=== PATIENT | female | born 1945 | race Caucasian/White ===

== ENCOUNTER 2018-02-04 10:10 | Observation (INO) | payer MEDICARE, OTHER ==
[2018-02-04] MEDS ORDERED: Aspirin TAB* 325 MG PO ONE (10:49)
[2018-02-04] MEDS ORDERED: Al Hydrox/Mg Hydrox/Simet LIQ* 30 ML UDC PO ONE (10:54)
[2018-02-04] MEDS ORDERED: Lidocaine 2% VISCOUS* 15 ML UDC PO ONE (10:55)
[2018-02-04] MEDS ORDERED: Aspirin 81 mg CHEW TAB* 81 MG TAB.CHEW ONE (11:19)
[2018-02-04 11:25] LABS: ABS Basophils 0 10^3/ul (0-0.2); ABS Eosinophils 0.1 10^3/ul (0-0.6); ABS Lymphocytes 1.1 10^3/ul (1.0-4.8); ABS Monocytes 0.8 10^3/ul (0-0.8); ABS Neutrophils 4.5 10^3/ul (1.5-7.7); ABS Nucleated RBC 0 10^3/ul; Eosinophil % 0.9 % (0-6); Hematocrit 40 % (35-47); Hemoglobin 13.3 g/dl (12.0-16.0); Lymphocyte % 17.7 % (25-47); Mean Corpuscular HGB Conc 33 g/dl (31-36); Mean Corpuscular Hemoglobin 31 pg (27-31); Mean Corpuscular Volume 94 fL (80-97); Mean Platelet Volume 8.1 um3 (7.4-10.4); Nucleated Red Blood Cells % 0; Platelet Count 277 10^3/ul (150-450); Red Blood Count 4.26 10^6/ul (4.0-5.4); Red Cell Distribution Width 13 % (10.5-15); White Blood Count 6.5 10^3/ul (3.5-10.8)
[2018-02-04] MEDS ORDERED: Aspirin 81 mg CHEW TAB* 81 MG TAB.CHEW PO ONE (11:27)
[2018-02-04 11:33] LABS: INR 0.9 (0.77-1.02)
--- NOTE | 2018-02-04 11:40 | RAD ---
Indication: Left leg pain and edema.. Duplex Doppler sonography of the deep venous system of the left lower extremity deep venous system was performed. Bilaterally the common femoral veins appear patent and compressible. Left proximal greater saphenous vein, proximal deep femoral vein, femoral vein, popliteal vein, posterior tibial veins and peroneal veins appear patent and compressible. IMPRESSION: NO EVIDENCE OF DEEP VENOUS THROMBOSIS IS IDENTIFIED.
[2018-02-04 11:45] LABS: EGFR Non-African American 53.6 (>60)
[2018-02-04] MEDS ORDERED: Iodixanol* (CONTRAST) 320 MG/ML 100 ML SDV IV ONE (11:49)
--- NOTE | 2018-02-04 12:19 | RAD ---
HISTORY: Chest pain after travel, calf pain COMPARISONS: CT dated November 29, 2017 TECHNIQUE: Multiple contiguous axial CT scans of the chest were obtained after the administration of nonionic intravenous contrast, timed to the pulmonary arterial phase of contrast enhancement.. Coronal and sagittal multiplanar reformations are also submitted for review. FINDINGS: NECK AND THYROID: The lower neck and thyroid are unremarkable. CHEST WALL: There is no lower cervical, axillary, or supraclavicular lymphadenopathy by size criteria. HEART AND PERICARDIUM: The heart is unremarkable. AORTA AND PULMONARY VASCULATURE: There is no pulmonary arterial filling defect to suggest pulmonary embolism. There is no linear filling defect within the aorta to suggest aortic dissection. MEDIASTINUM: There is no mediastinal lymphadenopathy by size criteria. JUSTA: There is no hilar lymphadenopathy by size criteria. AIRWAY AND ESOPHAGUS: The airway is unremarkable, without endobronchial filling defect. The esophagus is grossly normal. LUNG PARENCHYMA: There are stable pulmonary parenchymal nodules. PLEURA: No pleural abnormalities are noted. UPPER ABDOMEN: There is a small sliding hiatal hernia. BONES AND SOFT TISSUES: Degenerative changes are noted of the spine. OTHER: None. IMPRESSION: 1. NO PULMONARY ARTERIAL FILLING DEFECT TO SUGGEST PULMONARY EMBOLISM. 2. STABLE PULMONARY PARENCHYMAL NODULES
--- NOTE | 2018-02-04 12:36 | RAD ---
HISTORY: Chest pain COMPARISONS: CTA dated February 04, 2018 VIEWS: 1: frontal portable view of the chest at 12:17 AM FINDINGS: LINES AND TUBES: None. CARDIOMEDIASTINAL SILHOUETTE: The cardiomediastinal silhouette is normal for portable technique. PLEURA: The costophrenic angles are sharp. No pleural abnormalities are noted. LUNG PARENCHYMA: The lungs are clear. ABDOMEN: The upper abdomen is clear. There is no subphrenic gas. BONES AND SOFT TISSUES: No bone or soft tissue abnormalities are noted. IMPRESSION: NO ACTIVE CARDIOPULMONARY DISEASE.
[2018-02-04] MEDS ORDERED: NF:Lubiprostone (NF) 8 MCG CAP PO PRN (12:54)
--- NOTE | 2018-02-04 13:04 | ED ---
Rogelio Corral Natalie, scribed for Robert Núñez MD on 02/04/18 at 1132 . HPI Chest Pain - HPI Summary HPI Summary: The patient is a 73 y/o F presenting to the ED c/o sudden onset chest burning starting yesterday morning while she was at rest in the car, and continuing into today after waking up. Her right arm was also hurting, so she took Ibuprofen to some relief. She just returned from [facility] on 01/30/18. Before traveling, she slid on a pool ladder, and injured her left calf, which has become more bruised, tender to touch, and harder than before she left. The pain is rated 5/10 in severity. Pt denies difficulty breathing/SOB and chest palpitations. She has not had an episode similar to this, but she has hx of HTN , hypercholesterolemia, and rheumatoid arthritis. She takes folic acid, Omeprazole, and Xeljanz. - History of Current Complaint Chief Complaint: EDChestPainROMI Hx Obtained From: Patient Onset/Duration: Started Days Ago, Still Present Timing: Constant Initial Severity: Moderate Current Severity: Moderate Pain Intensity: 5 Pain Scale Used: 0-10 Numeric Chest Pain Location: Diffuse Chest Pain Radiates: Yes Chest Pain Radiates To:: Arm - right Character: Burning Aggravating Factor(s): Nothing Alleviating Factor(s): Nothing Associated Signs and Symptoms: Positive: Chest Pain, Calf Pain/Swelling - due to sliding off pool ladder accident, Other: - left arm pain. Negative: Shortness of Breath, Palpitations - Additional Pertinent History Primary Care Physician: [id number] - Allergy/Home Medications Allergies/Adverse Reactions: Allergies Allergy/AdvReac Type Severity Reaction Status Date / Time levofloxacin [From Levaquin] Allergy Numbness Verified 02/04/18 10:20 And Tingling Home Medications: Home Medications Lubiprostone (NF) [Amitiza (NF)] 8 mcg PO BID PRN 02/04/18 [History Confirmed ] PMH/Surg Hx/FS Hx/Imm Hx Endocrine/Hematology History: Denies: Hx Diabetes Cardiovascular History: Reports: Hx Hypercholesterolemia, Hx Hypertension Denies: Hx Angina, Hx Coronary Artery Disease, Hx Myocardial Infarction, Hx Pacemaker/ICD, Hx Valvular Heart Disease Respiratory History: Denies: Hx Asthma, Hx Chronic Obstructive Pulmonary Disease (COPD) GI History: Reports: Hx Gastroesophageal Reflux Disease Musculoskeletal History: Reports: Hx Arthritis - KNEES, Hx Rheumatoid Arthritis - DIAGNOSED 2010 Denies: Hx Osteoporosis Sensory History: Reports: Hx Cataracts - BILATERAL, Hx Contacts or Glasses Denies: Hx Hearing Aid Opthamlomology History: Reports: Hx Cataracts - BILATERAL, Hx Contacts or Glasses - Surgical History Surgery Procedure, Year, and Place: tubal ligation. tonsilectomy, left knee replacement 09/2015 Hx Anesthesia Reactions: No Infectious Disease History: No Infectious Disease History: Reports: Traveled Outside the [place] in Last 30 Days - [place] - Family History Known Family History: Positive: Hypertension - Social History Alcohol Use: Rare Alcohol Amount: 1/month Substance Use Type: Reports: None Smoking Status (MU): Never Smoked Tobacco Review of Systems Positive: Chest Pain - burning, radiating to right arm Negative: Shortness Of Breath Positive: Other - left calf Positive: Bruising - left calf All Other Systems Reviewed And Are Negative: Yes Physical Exam - Summary Physical Exam Summary: Appearance: Well-appearing, Well-nourished Skin: Warm Eyes: Normal ENT: Normal Neck: Supple, nontender Respiratory: Clear to auscultation Cardiovascular: Normal S1, S2. Mild systolic injection murmur 2/6, best heard at lower left external border. Normal distal pulses in tibial and radial bilaterally. Abdomen: Soft, nontender Musculoskeletal: Normal, Strength/ROM Intact. Tenderness in left calf with mild bruising, no pain with passive extension of calf Neurological: Normal, A&Ox3 Psychiatric: Normal General: No acute distress Triage Information Reviewed: Yes Vital Signs On Initial Exam: Initial Vitals Temp Pulse Resp BP Pulse Ox 99 F 60 18 153/76 98 02/04/18 10:20 02/04/18 10:20 02/04/18 10:20 02/04/18 10:20 02/04/18 10:20 Vital Signs Reviewed: Yes Diagnostics - Vital Signs Vital Signs Temp Pulse Resp BP Pulse Ox 02/04/18 10:20 99 F 60 18 153/76 98 - Laboratory Lab Results: Lab Results 02/04/18 02/04/18 02/04/18 Range/Units 11:14 11:14 11:14 WBC 6.5 (3.5-10.8) 10^3/ul RBC 4.26 (4.0-5.4) 10^6/ul Hgb 13.3 (12.0-16.0) g/dl Hct 40 (35-47) % MCV 94 (80-97) fL MCH 31 (27-31) pg MCHC 33 (31-36) g/dl RDW 13 (10.5-15) % Plt Count 277 (150-450) 10^3/ul MPV 8.1 (7.4-10.4) um3 Neut % (Auto) 69.3 (38-83) % Lymph % (Auto) 17.7 L (25-47) % Callahan % (Auto) 11.6 H (0-7) % Eos % (Auto) 0.9 (0-6) % Baso % (Auto) 0.5 (0-2) % Absolute Neuts (auto) 4.5 (1.5-7.7) 10^3/ul Absolute Lymphs (auto) 1.1 (1.0-4.8) 10^3/ul Absolute Monos (auto) 0.8 (0-0.8) 10^3/ul Absolute Eos (auto) 0.1 (0-0.6) 10^3/ul Absolute Basos (auto) 0 (0-0.2) 10^3/ul Absolute Nucleated RBC 0 10^3/ul Nucleated RBC % 0 INR (Anticoag Therapy) 0.90 (0.77-1.02) APTT 28.6 (26.0-36.3) seconds Sodium 143 (139-145) mmol/L Potassium 3.5 (3.5-5.0) mmol/L Chloride 109 (101-111) mmol/L Carbon Dioxide 26 (22-32) mmol/L Anion Gap 8 (2-11) mmol/L BUN 11 (6-24) mg/dL Creatinine 1.01 H (0.51-0.95) mg/dL Est GFR ( Amer) 68.9 (>60) Est GFR (Non-Af Amer) 53.6 (>60) BUN/Creatinine Ratio 10.9 (8-20) Glucose 145 H (70-100) mg/dL Lactic Acid (0.5-2.0) mmol/L Calcium 9.2 (8.6-10.3) mg/dL Magnesium 2.0 (1.9-2.7) mg/dL Total Bilirubin 0.40 (0.2-1.0) mg/dL AST 31 (13-39) U/L ALT 34 (7-52) U/L Alkaline Phosphatase 68 (34-104) U/L Troponin I 0.00 (<0.04) ng/mL Total Protein 6.9 (6.4-8.9) g/dL Albumin 4.0 (3.2-5.2) g/dL Globulin 2.9 (2-4) g/dL Albumin/Globulin Ratio 1.4 (1-3) /18/18 Range/Units 11:14 WBC (3.5-10.8) 10^3/ul RBC (4.0-5.4) 10^6/ul Hgb (12.0-16.0) g/dl Hct (35-47) % MCV (80-97) fL MCH (27-31) pg MCHC (31-36) g/dl RDW (10.5-15) % Plt Count (150-450) 10^3/ul MPV (7.4-10.4) um3 Neut % (Auto) (38-83) % Lymph % (Auto) (25-47) % Callahan % (Auto) (0-7) % Eos % (Auto) (0-6) % Baso % (Auto) (0-2) % Absolute Neuts (auto) (1.5-7.7) 10^3/ul Absolute Lymphs (auto) (1.0-4.8) 10^3/ul Absolute Monos (auto) (0-0.8) 10^3/ul Absolute Eos (auto) (0-0.6) 10^3/ul Absolute Basos (auto) (0-0.2) 10^3/ul Absolute Nucleated RBC 10^3/ul Nucleated RBC % INR (Anticoag Therapy) (0.77-1.02) APTT (26.0-36.3) seconds Sodium (139-145) mmol/L Potassium (3.5-5.0) mmol/L Chloride (101-111) mmol/L Carbon Dioxide (22-32) mmol/L Anion Gap (2-11) mmol/L BUN (6-24) mg/dL Creatinine (0.51-0.95) mg/dL Est GFR ( Amer) (>60) Est GFR (Non-Af Amer) (>60) BUN/Creatinine Ratio (8-20) Glucose (70-100) mg/dL Lactic Acid 1.9 (0.5-2.0) mmol/L Calcium (8.6-10.3) mg/dL Magnesium (1.9-2.7) mg/dL Total Bilirubin (0.2-1.0) mg/dL AST (13-39) U/L ALT (7-52) U/L Alkaline Phosphatase (34-104) U/L Troponin I (<0.04) ng/mL Total Protein (6.4-8.9) g/dL Albumin (3.2-5.2) g/dL Globulin (2-4) g/dL Albumin/Globulin Ratio (1-3) Result Diagrams: 02/04/18 11:14 02/04/18 11:14 Lab Statement: Any lab studies that have been ordered have been reviewed, and results considered in the medical decision making process. - Radiology CXR Xray Interpretation: No Acute Changes - No active cardiopulmonary disease. ED physician has reviewed this report. - CT Chest/Thorax CTA CT Interpretation: No Acute Changes - 1. No pulmonary arterial filling defect to suggest pulmonary embolism. 2. Stable pulmonary parenchymal nodules. ED physician has reviewed this report. CT Interpretation Completed By: Radiologist - Ultrasound No standard instances Ultrasound Interpretation: No Acute Changes - LLE Venous Doppler Study: No evidence of deep venous thrombosis is identified. ED physician has reviewed this report. Ultrasound Interpretation Completed By: Radiologist - EKG 10:33 Cardiac Rate: Bradycardia EKG Rhythm: Sinus Bradycardia - 54 BPM EKG Interpretation: Atrial premature complex. No acute ischemic ST changes. Re-Evaluation - Re-Evaluation First Eval Re-Evaluation Time: 12:29 Change: Improved - moderately Comment: I spoke with the patient about her imaging results and possible admittance to [facility]. Her pain has moderately improved. Chest Pain Course/Dx - Course Assessment/Plan: Pain mildly improved currently, no evidence of DVT or PE on CT and ultrasound, patient in no acute distress, I spoke to the hospitalist about observing the patient for serial troponins and continued monitoring - Diagnoses Provider Diagnoses: Chest pain - Provider Notifications Discussed Care Of Patient With: Sergio Griffin Discharge - Sign-Out/Discharge Documenting (check all that apply): Discharge/Admit/Transfer - Discharge Plan Condition: Stable Disposition: ADMITTED TO [facility] Referrals: Gerard Parker MD [Primary Care Provider] - - Billing Disposition and Condition Condition: STABLE Disposition: HOSP-[facility] The documentation as recorded by the Rogelio peraza Natalie accurately reflects the service I personally performed and the decisions made by me, Robert Núñez MD.
[2018-02-04] MEDS ORDERED: hydrALAZINE IV* 20 MG/ML VIAL IV SLOW PU PRN (13:39)
[2018-02-04] MEDS: Heparin VIAL(*) 5000 UNITS/ML VIAL (FIVE THOUSAND) SUBCUT SCH ×2 (15:07→21:15)
--- NOTE | 2018-02-04 17:34 | RAD ---
INDICATION: Abscess inferior right breast. Clinical symptoms for 2 months. COMPARISON: None TECHNIQUE: Radial and antiradial scans of the inferior right breast were performed using grayscale and color Doppler imaging. Imaging was performed the site of palpable concern in the inferior breast FINDINGS: At the 7:00 position 4 to 5 cm from the nipple is a small, elliptical, thick walled, complex cystic structure with peripheral vascularity. This is likely a small abscess. This is immediately below the skin surface. There are no additional cystic or solid entities. There are prominent ducts in the retroareolar region. IMPRESSION: SUSPECT ABSCESS INFERIOR RIGHT BREAST. INCISION AND DRAINAGE OF THIS PALPABLE FINDING IS LIKELY REQUIRED. FROM AN IMAGING STANDPOINT, SUGGEST 1-2 MONTH FOLLOW-UP POST INTERVENTION/THERAPY SO TO CONFIRM COMPLETE RESOLUTION. ASSESSMENT: ACR BI-RADS Category 4: Suspicious
[2018-02-04] MEDS ORDERED: Atorvastatin* 20 MG TAB PO SCH (18:00)
[2018-02-04] MEDS: Clindamycin 600 MG IVPREMIX(* 600 MG/50 ML SDV IV SCH (20:50)
[2018-02-04] MEDS: TOFACITINIB CITRATE 5 MG PO SCH (21:13)
[2018-02-04] MEDS: Omeprazole CAP* 20 MG PO SCH (21:14)
[2018-02-04] MEDS: Folic Acid TAB* 1 MG PO SCH (21:14)
--- NOTE | 2018-02-04 21:27 | HP ---
CC: Dr. Gerard Parker * HISTORY AND PHYSICAL: DATE OF ADMISSION: 02/04/18 PRIMARY CARE PROVIDER: Dr. Gerard Parker. ATTENDING PHYSICIAN: Dr. Sergio Griffin * (dictated by Doreen Clark NP) . CHIEF COMPLAINT: Right-sided chest burning. HISTORY OF PRESENT ILLNESS: Ms. Quintero is a 73-year-old female with past medical history significant for rheumatoid arthritis, hyperlipidemia, GERD, who presented to the emergency room with complaints of right-sided chest burning. The patient states that she has recently traveled back from [facility] and had been feeling well. She states that yesterday morning, she developed sudden onset of right chest burning while she was at rest in the car. This continued today after she woke up. She also reports pain in her right arm, took some ibuprofen with relief. She reports some arthritis in that right shoulder. During her travel to [facility], she slipped on a pool ladder injuring her left calf and has had some bruising and tenderness to the touch in her left calf. She denies any shortness of breath, palpitations. She reports some diaphoresis and trembling when her pain started. She also reports nausea. She denies any diarrhea, abdominal pain, fevers, chills. The patient has not had a similar episode like this. This is different than her chest discomfort that she had 2 years prior. She has a history of hypercholesterolemia and rheumatoid arthritis. She denies any history of hypertension. She also reports developing a "skin issue on her right breast" since in September the a mass that eventually opened up about 2 weeks ago draining pus and blood. She states that she had a similar area on her left breast in the past, that she lanced at home. Due to her symptoms, she presented to the emergency room for further evaluation. While in the emergency room, she had a chest CTA showing no signs of PE. She had a left lower extremity ultrasound showing no DVT. She had a chest x-ray with no acute findings and she had an EKG showing a sinus bradycardia, rate of 44. She was noted to be hypertensive while in the emergency room. She was feeling very anxious. Due to her history and concern for her continued chest discomfort, the Hospitalists were asked to evaluate the patient for admission. PAST MEDICAL HISTORY: 1. Rheumatoid arthritis. 2. Hyperlipidemia. 3. GERD. PAST SURGICAL HISTORY: 1. Status post tubal ligation. 2. Status post left total knee arthroplasty. HOME MEDICATIONS: Include: 1. Crestor 10 mg oral every evening. 2. Omeprazole 20 mg oral twice daily. 3. Amitiza 8 mcg oral twice daily as needed for constipation. 4. Folic acid 1 mg oral twice daily. 5. Xeljanz 5 mg oral twice daily. ALLERGIES: LEVAQUIN. FAMILY HISTORY: The patient's mother and 2 sisters had a history of coronary artery disease. Her father also had a history of coronary artery disease and AAA. The patient's maternal grandmother with a history of diabetes mellitus. Her mother had a history of stomach cancer. SOCIAL HISTORY: The patient denies tobacco or recreational drug use. She rarely drinks alcohol. Her , Ronald Quintero, will be her surrogate decision maker in the event she is unable to make decisions for herself. REVIEW OF SYSTEMS: I performed an 11-point review of systems. All the pertinent positives and negatives are mentioned in the history of present illness. The patient denies any urinary symptoms. The remaining review of systems are negative. PHYSICAL EXAMINATION GENERAL APPEARANCE: The patient is alert, pleasant and appears to be in no acute distress. VITAL SIGNS: Temperature 99.0, heart rate 58, respiratory rate 15, O2 sat 96% on room air, blood pressure 188/82. HEENT: Normocephalic, atraumatic. Pupils are equal and reactive to light. Extraocular movements are intact. RESPIRATORY: There is no accessory muscle use. The lungs are clear to auscultation bilaterally. CARDIOVASCULAR: Regular rate and rhythm. S1 and S2 are present. There are no murmurs, rubs, or gallops heard. ABDOMEN: Soft, nontender, nondistended. There are bowel sounds present x4. EXTREMITIES: There is no lower extremity edema. DP and PT pulses are 2+ and symmetric. MUSCULOSKELETAL: There is no clubbing or cyanosis noted. The patient exhibits good strength in all extremities. NEUROLOGICAL: The patient is alert and oriented x4. Cranial nerves II through XII are grossly intact. PSYCHOLOGICAL: The patient is calm and cooperative. SKIN: The patient has ecchymosis to her left calf. She has an area of purplish skin that looks as though it may be an abscess formation underneath her right breast at about 7 o'clock from the nipple. DIAGNOSTIC STUDIES/LABORATORY DATA: Sodium 143, potassium 3.5, chloride 109, CO2 26, BUN 11, creatinine 1.01, glucose 145. White blood cell count 6.5, hemoglobin 13.3, hematocrit 40, platelet count 277. Troponin 0.00. EKG shows a sinus bradycardia, rate of 54. There are no acute signs of ischemia. This EKG is similar to previous from 10/24/15. Chest x-ray from today. Radiologist's impression: No active cardiopulmonary disease. Chest thoracic CTA from today. Radiologist's impression: No pulmonary arterial filling defect to suggest pulmonary embolus. Stable pulmonary parenchymal nodules. Left lower extremity venous Doppler study from today. Radiologist's impression : No evidence for deep vein thrombus is identified. IMPRESSION: Ms. Quintero is a 73-year-old female with past medical history significant for hyperlipidemia, rheumatoid arthritis, gastroesophageal reflux disease, who presented to the emergency room with complaints of right chest pain. She will be admitted as an observation for chest pain rule out acute coronary syndrome. ASSESSMENT/PLAN: 1. Chest pain. I suspect this is likely noncardiac in nature, but we will admit her to rule out acute coronary syndrome. We will trend her troponins. If she rules out for acute coronary syndrome, she can be discharged to home and then have an outpatient stress test if determined to be needed. I will check fasting lipids in the morning. 2. Right breast pain. I suspect this is the cause of her chest pain. The patient has what appears to be an abscess on the underside of her right breast. We will check an ultrasound to eval for the possibility of a large abscess. The patient states this drained on its own about 2 weeks ago. Currently, it is draining a small amount of serous drainage. She reports that it drained pus and blood previously. I will culture the wound and ask surgery to eval to see if it requires further I+D after the ultrasound is complete. 3. Hypertension. The patient states she does not have a history of hypertension. She has been hypertensive in the emergency room. This could be secondary to an ill fitting blood pressure cuff and anxiety. I am going to order her hydralazine as needed. If she continues to be hypertensive, I am going to consider starting her on amlodipine daily. 4. Hyperlipidemia. The patient will be continued on her statin. We will check fasting lipids in the morning. 5. Gastroesophageal reflux disease. The patient will be continued on omeprazole. 6. Rheumatoid arthritis. The patient will be continued on her home Xeljanz. 7. Fluids, electrolytes and nutrition. The patient will be on a heart-healthy diet. 8. Code status. Full code. 9. DVT prophylaxis. The patient is at high risk and will have subcu heparin. 10. Disposition. Observation. TIME SPENT: Time for this admission was approximately 60 minutes, greater than half of that was spent [id number] with the patient discussing medications, past medical history, the events leading up to her arrival today, and performing a physical examination. The case has been reviewed with the attending, Dr. Griffin, who agrees with the plan of care. Reviewed by DILIA TRAN 02/05/18 1428 [id number]/[facility] #: [id number] GRAIMA
[2018-02-05] MEDS: Clindamycin 600 MG IVPREMIX(* 600 MG/50 ML SDV IV SCH ×2 (03:39→12:03)
[2018-02-05] MEDS: Heparin VIAL(*) 5000 UNITS/ML VIAL (FIVE THOUSAND) SUBCUT SCH (05:11)
[2018-02-05] MEDS: Folic Acid TAB* 1 MG PO SCH (08:26)
[2018-02-05] MEDS: Omeprazole CAP* 20 MG PO SCH (08:26)
[2018-02-05] MEDS: TOFACITINIB CITRATE 5 MG PO SCH (08:26)
[2018-02-05] MEDS ORDERED: Fluconazole 100 MG TAB* TAB PO STA (12:01)
--- NOTE | 2018-02-05 12:07 | CONS ---
CC: Nick Jin MD; Dr. Gerard Parker CONSULTATION REPORT: DATE OF CONSULT: 02/05/18 INDICATION: I was asked by the hospitalist service to evaluate Ms. Quintero for an abscess of the right breast. By history, she tells me she has had a mass there that has been waxing and waning for about 4 months now. Over the last few weeks, it has become a little more swollen, a little more discolore d, and a little more painful and it was development of right chest pain that brought her to the [facility] ency room yesterday. It did start draining spontaneously yesterday and now the pain is actually quit e improved. She had no accident, injury or trauma to this breast. She remains up-to-date on her michael mograms and has not had anything abnormal by report. A check of the hospital system reveals a normal mammogram in August of 2017. She has no first-degree relatives with breast cancer. She has not h ad any previous breast biopsies. She did have an infection of the left breast a couple of years ago when she lanced that herself and that resolved. She is otherwise usually reasonably fit. She does n ot have chronic cutaneous infections. PHYSICAL EXAM: On examination, she is a well-developed, well-nourished, overweight female. She does not appear acutely ill. She is alert and coherent. She is afebrile. Vital signs are noted. [place] of the breasts reveals that they are large, symmetric. There are no ominous skin or nipple ch anges. Careful examination of the right breast does not reveal any obvious masses. In the inferior part of the breast and roughly the midclavicular line, there is an area of slightly purplish discolor ation which is slightly fluctuant. It is about 2.5 cm across and is roughly circular. It has a dept h of less than half a centimeter. There is an opening such that when I manipulated, there is a little purulent fluid forthcoming. A culture was taken yesterday, so I did not repeat a culture at this ti me. There is no surrounding induration. There is minimal tenderness. There is no obvious adenopath y. Her body habitus does somewhat limit the sensitivity of that examination. LABORATORY STUDIES: Reveal normal white blood count with relatively normal differential. Her chemis tries are relatively normal as well. She had a culture taken of the fluid, which shows 3+ neutrophil s, 2+ gram-positive bacilli, and 1+ gram-positive cocci. IMPRESSION: A 73-year-old female with waxing and waning mass of the lower breast, which appears to b e a small abscess and is now draining spontaneously. At this point, I do not think it needs additional incision and drainage and I think she could be disc harged on oral antibiotics. I have given her my card and discussed these things with her and I recom mend that she see me in the office in the coming week and we can talk about definitive therapy. I th ink given the chronic nature of this excision of the entire area is probably the most expedient way t o solve the problem and we will discuss that further when I see her in the office. I discussed her c ase with Dr. Parsons and he will take care of discharging her and again I will be happy to see her i n the office in the next couple of days. [id number]/[facility] #: [id number]
[2018-02-05 13:14] VITALS: BP 177/71
--- NOTE | 2018-02-05 23:33 | DS ---
DISCHARGE SUMMARY: ADDENDUM: HISTORY OF PRESENT ILLNESS/HOSPITAL COURSE: She was also given a one-time dose of 150 mg fluconazole p.o. x1 due to candidal vaginitis likely induced by clindamycin therapy. As mentioned, she claims that every time she gets antibiotics, she would have vaginal itchiness and 2 or 3 days later, she would have a full grown vaginal candidiasis. She is being started on this medication x1 prior to discharge and we will defer with the patient's PCP while she is on clindamycin if she might develop vaginal candidiasis during or after her clindamycin therapy. [id number]/[facility] #: [id number] MTDD
--- NOTE | 2018-02-06 00:14 | DS ---
CC: Dr. Jin; Dr. Griffin; Dr. Núñez; Dr. Parker DISCHARGE SUMMARY: DATE OF ADMISSION: 02/04/18 DATE OF DISCHARGE: 02/05/18 DISCHARGE DIAGNOSES: 1. Right breast abscess, with spontaneous draining; no need for incision and drainage per Surgery (Dr. Jin). 2. Chest pain, likely secondary to the above, 3 troponin trends were normal and equal to 0. 3. Hyperlipidemia. 4. Gastroesophageal reflux disease. 5. History of rheumatoid arthritis. HISTORY OF PRESENT ILLNESS/HOSPITAL COURSE: The patient is 73-year-old lady with history of rheumatoid arthritis, hyperlipidemia and GERD, who presented to the emergency department last night complaining of right-sided burning chest pain. The patient stated that she recently traveled back from [facility] and had been feeling well and stated that yesterday morning she developed a sudden onset of right burning chest pain while she was at rest in her car. When she woke up, she reported that her right arm was painful and she took some ibuprofen with some relief. She further mentions that she slipped on a pool ladder injuring her left calf and has had some bruising and tenderness to touch on her left calf in [facility]. She had been referred for chest pain observation to our service by Dr. Núñez. While she was being evaluated for admission, however, she mentioned that she has skin lesion under her right breast and it was found that she actually had a right breast abscess. She was admitted for observation. Her troponins were trended and as mentioned they were all found to be negative. She was seen by Dr. Jin of Surgery, who I touched base this morning and mentioned that there is no need for I and D at this time given the wound is appropriately draining and hence we will discharge her on oral antibiotics on clindamycin, especially given the results of her Gram stain showed 2+ gram-positive bacilli and 1+ gram-positive cocci and hence also should have some coverage for MRSA in addition to anaerobic coverage. She had been advised to follow up with Dr. Jin as described above and to follow up with her primary care physician within 3 days post discharge. She mentions that she has an appointment already set up this coming Wednesday with her PCP and she had been advised that her PCP and/or her surgeon should follow up on the speciation and culture data. Furthermore, she was advised to come back and be reevaluated in the ED if her abscess somewhat worsens or if she develops any fevers or chills despite being on clindamycin. Given her blood pressure was quite uncontrolled and consistently so on observation in the 160s to 180s SBPs, we will place her on the low dose lisinopril at 10 mg p.o. daily to be titrated by her PCP. Certainly, some of her uncontrolled hypertension may be due to white coat hypertension along with the stress of being just recently admitted; however, being that it is consistent and with systolics in the 180s with a BP taken prior to her discharge , I elected to place her on lisinopril. I have advised her that her primary care physician will need to observe her and to further titrate her medications, especially when her acute issue has resolved. She has been given this new medication because despite the fact of not being in pain, her blood pressure was still found to be quite elevated and certainly current studies suggest that white coat hypertension should also be treated. PHYSICAL EXAMINATION: Shows the most recent vital signs of record with a blood pressure of 177/71, 98.3 degrees Fahrenheit, 60 beats per minute heart rate, 16 per minute respiratory rate, saturating at 95% on room air. General Appearance : The patient is awake, alert, and oriented x3, not in acute distress. HEENT: Normocephalic, atraumatic. PERRLA. Extraocular muscles intact. Negative for icterus. Moist oral mucosa. Negative for throat erythema. Neck is soft, supple with no cervical lymphadenopathy, no JVD. Heart: S1, S2 within normal limits. Regular rate and rhythm. No murmurs, rubs, or gallops. Chest: Clear to auscultation bilaterally. Good air entry. No wheezes, rales, or rhonchi. Abdomen is soft, nondistended, nontender. Normoactive bowel sounds x4. Extremities: No cyanosis, clubbing, or edema. Psychiatric: No active psychosis, depression, or suicidal ideation. Skin is warm to touch and there is a 2.5 cm roughly circular and slightly purplish discoloration around the area in the inferior part of her right breast roughly in the midclavicular line. REVIEW OF SYSTEMS: She mentions that she has vaginal itching and it is not uncommon for her to have vaginal candidiasis whenever she is on antibiotic. She also was concerned about her blood pressure. Otherwise, she denied any recent headaches, dizziness, fevers, chills, nausea, vomiting, chest pain, shortness of breath, increased coughing or sputum production, abdominal pain, diarrhea, constipation, pain and/or increased frequency on urination, myalgias or arthralgias, throat pain, or new skin lesions other than her known abscess. The rest of the 14-point review of systems was otherwise unremarkable. DISCHARGE MEDICATIONS: 1. Clindamycin 600 mg p.o. t.i.d. for 10 days. 2. Folate 1 mg p.o. b.i.d. 3. Lactobacillus acidophilus 1 tab p.o. daily for 14 days. 4. Lisinopril 10 mg p.o. daily. 5. Lubiprostone or Amitiza 8 mcg p.o. b.i.d. 6. Omeprazole 20 mg p.o. b.i.d. 7. Rosuvastatin 10 mg p.o. q.p.m. 8. Tofacitinib citrate 5 mg p.o. b.i.d. for her rheumatoid arthritis. TIME SPENT: The total time spent evaluating the patient, reviewing pertinent data, and appropriate documentation is greater than 30 minutes. [id number]/[facility] #: [id number] GARIMA
== END 2018-02-05 14:00 | disposition home or self-care (01) ==
LOC: ED 10:10 → MEDTELE 12:46
PROVIDERS: ADMIT Internal Medicine; ATTEND Student in an Organized Health Care Education/Training Program
DX: N61.1 Abscess of the breast and nipple (principal); R07.9 Chest pain, unspecified; E78.5 Hyperlipidemia, unspecified; M79.606 Pain in leg, unspecified; K21.9 Gastro-esophageal reflux disease without esophagitis; M06.9 Rheumatoid arthritis, unspecified; Z96.652 Presence of left artificial knee joint
CPT/HCPCS: 36415; 71045; 71275; 80053; 80061; 83605; 83735; 84484; 85025; 85610; 85730; 87070; 87205; 87640; 87641; 93005; 96365; 99283; A9270-GY; G0378; J0360; J1644; Q9967

== ENCOUNTER 2019-02-05 16:49 | Emergency (ER) | payer MEDICARE, OTHER ==
--- NOTE | 2019-02-05 17:12 | ED ---
Palpitations / Dysrhythmia - HPI Summary HPI Summary: This patient is a 74 year old F presenting to [facility] with a chief complaint of a bout of asymptomatic a-fib that was detected by her apple watch while taking a nap this afternoon. According to the watch her heart rate was between 130-150 BPM for 20 minutes. Denies dizziness, SOB and palpations. Denies hx of a-fib. Additionally reports upper left arm pain for the past week that she has been managing with Tylenol. - History of Current Complaint Chief Complaint: EDDysrhythmPalp Time Seen by Provider: 02/05/19 17:00 Hx Obtained From: Patient Onset/Duration: Sudden Onset Timing: Intermittent Episodes Lasting: - 20 minutes Severity Currently: None Aggravating: Nothing Alleviating: Other - spontaneous Associated Signs & Symptoms: Negative - Allergy/Home Medications Allergies/Adverse Reactions: Allergies Allergy/AdvReac Type Severity Reaction Status Date / Time levofloxacin [From Levaquin] Allergy Numbness Verified 05/12/18 10:40 And Tingling Home Medications: Home Medications Albuterol Sulfate [Albuterol Sulfate Hfa] 2 puff INH Q4HR PRN 02/05/19 [History Confirmed 02/05/19] Losartan Potassium 100 mg PO DAILY 02/05/19 [History Confirmed 02/05/19] PMH/Surg Hx/FS Hx/Imm Hx Endocrine/Hematology History: Denies: Hx Diabetes Cardiovascular History: Reports: Hx Hypercholesterolemia, Hx Hypertension Denies: Hx Angina, Hx Coronary Artery Disease, Hx Myocardial Infarction, Hx Pacemaker/ICD, Hx Valvular Heart Disease Respiratory History: Denies: Hx Asthma, Hx Chronic Obstructive Pulmonary Disease (COPD) GI History: Reports: Hx Gastroesophageal Reflux Disease History: Denies: Hx Renal Disease Musculoskeletal History: Reports: Hx Arthritis, Hx Rheumatoid Arthritis - DIAGNOSED 2010 Denies: Hx Osteoporosis Sensory History: Reports: Hx Cataracts - BILATERAL, Hx Contacts or Glasses Denies: Hx Hearing Aid Opthamlomology History: Reports: Hx Cataracts - BILATERAL, Hx Contacts or Glasses - Surgical History Surgery Procedure, Year, and Place: tubal ligation. tonsilectomy, left knee replacement 09/2015 Hx Anesthesia Reactions: No Infectious Disease History: No Infectious Disease History: Denies: Traveled Outside the [place] in Last 30 Days - Family History Known Family History: Positive: Hypertension, Other - a-fib - Social History Alcohol Use: Rare Alcohol Amount: 1/month Substance Use Type: Reports: None Smoking Status (MU): Never Smoked Tobacco Review of Systems Constitutional: Negative Negative: Palpitations Negative: Shortness Of Breath Positive: Myalgia - left arm All Other Systems Reviewed And Are Negative: Yes Physical Exam - Summary Physical Exam Summary: Appearance: The patient is well-nourished in no acute distress and in no acute pain. Skin: The skin is warm and dry and skin color reflects adequate perfusion. HEENT: The head is normocephalic and atraumatic. The pupils are equal and reactive. The conjunctivae are clear and without drainage. Nares are patent and without drainage. Mouth reveals moist mucous membranes and the throat is without erythema and exudate. The external ears are intact. The ear canals are patent and without drainage. The tympanic membranes are intact. Neck: The neck is supple with full range of motion and non-tender. There are no carotid bruits. There is no neck vein distension. Respiratory: Chest is non-tender. Lungs are clear to auscultation and breath sounds are symmetrical and equal. Cardiovascular: Heart is regular rate and rhythm. There is no murmur or rub auscultated. There is no peripheral edema and pulses are symmetrical and equal. Abdomen: The abdomen is soft and non-tender. There are normal bowel sounds heard in all four quadrants and there is no organomegaly palpated. Musculoskeletal: There is no back tenderness noted. Extremities are non-tender with full range of motion. There is good capillary refill. There is no peripheral edema or calf tenderness elicited. Neurological: Patient is alert and oriented to person, place and time. The patient has symmetrical motor strength in all four extremities. Cranial nerves are grossly intact. Deep tendon reflexes are symmetrical and equal in all four extremities. Psychiatric: The patient has an appropriate affect and does not exhibit any anxiety or depression Triage Information Reviewed: Yes Vital Signs On Initial Exam: Initial Vitals Temp Pulse Resp BP Pulse Ox 96.6 F 73 18 140/103 95 02/05/19 16:53 02/05/19 16:53 02/05/19 16:53 02/05/19 16:53 02/05/19 16:53 Vital Signs Reviewed: Yes Diagnostics - Vital Signs Vital Signs Temp Pulse Resp BP Pulse Ox 02/05/19 16:53 96.6 F 73 18 140/103 95 - Laboratory Result Diagrams: 02/05/19 17:32 02/05/19 17:32 Lab Statement: Any lab studies that have been ordered have been reviewed, and results considered in the medical decision making process. - EKG 1703 Cardiac Rate: NL - 67 BPM EKG Rhythm: Sinus Rhythm Summary of EKG Findings: Normal sinus rhythm, normal ST, no ectopy, no STEMI Course/Dx - Course Course Of Treatment: Ms. Quintero was kept on a monitor here and had no further episodes of atrial fibrillation. Her lab work including a delayed troponin was negative. I recommended follow-up for further workup with her PCP. - Diagnoses Provider Diagnoses: New onset atrial fibrillation Discharge - Sign-Out/Discharge Documenting (check all that apply): Patient Departure - discharge Patient Received Moderate/Deep Sedation with Procedure: No - Discharge Plan Condition: Stable Disposition: HOME Patient Education Materials: A-fib (Atrial Fibrillation) (ED) Referrals: Gerard Parker MD [Primary Care Provider] - 2 Days Additional Instructions: RETURN TO THE EMERGENCY DEPARTMENT FOR CHANGING OR WORSENING SYMPTOMS. - Billing Disposition and Condition Condition: STABLE Disposition: Home - Attestation Statements Document Initiated by Scribe: Yes Documenting Scribe: Lindsay Carty Provider For Whom Scribe is Documenting (Include Credential): Tarun Aguila MD Scribe Attestation: ILindsay, scribed for Tarun Aguila MD on 02/05/19 at 2014. Scribe Documentation Reviewed: Yes Provider Attestation: The documentation as recorded by the Lindsay peraza accurately reflects the service I personally performed and the decisions made by me, Tarun Aguila MD Status of Scribe Document: Viewed
[2019-02-05 17:41] LABS: ABS Eosinophils 0.1 10^3/ul (0-0.6); ABS Lymphocytes 1.6 10^3/ul (1.0-4.8); ABS Monocytes 0.7 10^3/ul (0-0.8); ABS Neutrophils 2.2 10^3/ul (1.5-7.7); Eosinophil % 1.5 %; Hematocrit 39 % (35-47); Hemoglobin 12.9 g/dL (12.0-16.0); Lymphocyte % 34.3 %; Mean Corpuscular HGB Conc 33 g/dL (31-36); Mean Corpuscular Hemoglobin 31 pg (27-31); Mean Corpuscular Volume 94 fL (80-97); Mean Platelet Volume 7.7 fL (7.4-10.4); Nucleated Red Blood Cells % 0.1; Platelet Count 302 10^3/uL (150-450); Red Blood Count 4.17 10^6 /uL (3.70-4.87); Red Cell Distribution Width 14 % (10.5-15); White Blood Count 4.7 10^3/uL (3.5-10.8)
[2019-02-05 17:48] LABS: INR 0.89 (0.82-1.09)
[2019-02-05 18:02] LABS: Albumin 4.2 g/dL (3.2-5.2); Albumin/Globulin Ratio 1.6 (1-3); BUN/Creatinine Ratio 12.8 (8-20); Calcium 9.3 mg/dL (8.6-10.3); EGFR African American 59.2 (>60); EGFR Non-African American 48.9 (>60); Globulin 2.7 g/dL (2-4); Magnesium 2.1 mg/dL (1.9-2.7); Total Bilirubin 0.3 mg/dL (0.2-1.0); Total Protein 6.9 g/dL (6.4-8.9)
[2019-02-05 18:04] LABS: Troponin I 0.01 ng/mL (<0.04)
[2019-02-05 18:56] LABS: Potassium 4.4 mmol/L (3.5-5.0)
[2019-02-05 19:04] LABS: TSH (Thyroid Stimulating Horm) 2.23 mcIU/mL (0.34-5.60)
[2019-02-05 22:41] VITALS: BP 140/78
== END 2019-02-05 21:25 | disposition home or self-care (01) ==
LOC: ED 16:49
DX: I48.91 Unspecified atrial fibrillation (principal); M79.622 Pain in left upper arm; I10 Essential (primary) hypertension; Z96.652 Presence of left artificial knee joint; Z88.1 Allergy status to other antibiotic agents
CPT/HCPCS: 36415; 80053; 83605; 83735; 84443; 84484; 85025; 85379; 85610; 93005; 99283

== ENCOUNTER 2019-02-07 08:07 | Inpatient (IN) | payer MEDICARE, OTHER ==
[2019-02-07] MEDS ORDERED: Diltiazem IV push/loading dose 5 MG/ML 5 ML vial (25 mg) IV SLOW PU ONE (08:22)
--- NOTE | 2019-02-07 08:24 | ED ---
HPI Chest Pain - HPI Summary HPI Summary: This patient is a 74 year old F presenting to [facility] accompanied by with a chief complaint of sub-sternal chest pain that is described as burning since this morning, 30 minutes ago, with associated diaphoresis. Patient was here 02/05 after her apple watch showed A-fib, she was placed on monitor and no episodes of afib were observed, and she was discharged home. No Hx of afib and she is not on blood thinners. The patient returned again today for the same reason, apple watch showed afib. The patient rates the pain 5/10 in severity and has a BP of 189/135. Patient reports feeling palpitations this morning and waking up with mid-sternal chest pain. Patient denies nausea, vomiting, and SOB. Symptoms aggravated by nothing. Symptoms alleviated by nothing. The patient has a pertinent FHx of atrial fibrillation. The patient has a Hx of Rheumatoid Arthritis. - History of Current Complaint Time Seen by Provider: 02/07/19 08:08 Hx Obtained From: Patient Onset/Duration: Started Hours Ago - this morning 02/07/19 Timing: Constant Initial Severity: Moderate Current Severity: Moderate Pain Intensity: 5 Pain Scale Used: 0-10 Numeric Chest Pain Location: Lower Sternal - sub Chest Pain Radiates: No Character: Burning Aggravating Factor(s): Nothing Alleviating Factor(s): Nothing Associated Signs and Symptoms: Positive: Chest Pain, Diaphoresis, Palpitations. Negative: Shortness of Breath, Nausea, Vomiting - Additional Pertinent History Primary Care Physician: [id number] - Allergy/Home Medications Allergies/Adverse Reactions: Allergies Allergy/AdvReac Type Severity Reaction Status Date / Time levofloxacin [From Levaquin] Allergy Numbness Verified 05/12/18 10:40 And Tingling PMH/Surg Hx/FS Hx/Imm Hx Previously Healthy: No Endocrine/Hematology History: Denies: Hx Diabetes Cardiovascular History: Reports: Hx Hypercholesterolemia, Hx Hypertension Denies: Hx Angina, Hx Coronary Artery Disease, Hx Myocardial Infarction, Hx Pacemaker/ICD, Hx Valvular Heart Disease Respiratory History: Denies: Hx Asthma, Hx Chronic Obstructive Pulmonary Disease (COPD) GI History: Reports: Hx Gastroesophageal Reflux Disease History: Denies: Hx Renal Disease Musculoskeletal History: Reports: Hx Arthritis, Hx Rheumatoid Arthritis - DIAGNOSED 2010 Denies: Hx Osteoporosis Sensory History: Reports: Hx Cataracts - BILATERAL, Hx Contacts or Glasses Denies: Hx Hearing Aid Opthamlomology History: Reports: Hx Cataracts - BILATERAL, Hx Contacts or Glasses - Surgical History Surgery Procedure, Year, and Place: tubal ligation. tonsilectomy, left knee replacement 09/2015 Hx Anesthesia Reactions: No - Family History Known Family History: Positive: Hypertension, Other - a-fib - Social History Alcohol Use: Rare Alcohol Amount: 1/month Hx Substance Use: No Substance Use Type: Reports: None Hx Tobacco Use: No Smoking Status (MU): Never Smoked Tobacco Review of Systems Positive: Skin Diaphoresis Positive: Palpitations, Chest Pain - sub-sternal Negative: Shortness Of Breath Negative: Vomiting, Nausea All Other Systems Reviewed And Are Negative: Yes Physical Exam - Summary Physical Exam Summary: VITAL SIGNS: Reviewed. GENERAL: Patient is a well-developed and nourished female who is lying comfortable in the stretcher. Patient is not in any acute respiratory distress. HEAD AND FACE: No signs of trauma. No ecchymosis, hematomas or skull depressions. No sinus tenderness. EYES: PERRLA, EOMI x 2, No injected conjunctiva, no nystagmus. EARS: Hearing grossly intact. Ear canals and tympanic membranes are within normal limits. MOUTH: Oropharynx within normal limits. NECK: Supple, trachea is midline, no adenopathy, no JVD, no carotid bruit, no c- spine tenderness, neck with full ROM. CHEST: Symmetric, no tenderness at palpation, LUNGS: Clear to auscultation bilaterally. No wheezing or crackles. CVS: Tachycardia, Irregular rate and rhythm, S1 and S2 present, no murmurs or gallops appreciated. ABDOMEN: Soft, non-tender. No signs of distention. No rebound no guarding, and no masses palpated. Bowel sounds are normal. EXTREMITIES: FROM in all major joints, no edema, no cyanosis or clubbing. NEURO: Alert and oriented x 3. No acute neurological deficits. Speech is normal and follows commands. SKIN: Dry and warm Triage Information Reviewed: Yes Vital Signs On Initial Exam: Initial Vitals Temp Pulse Resp BP Pulse Ox 98.1 F 124 20 189/135 94 02/07/19 08:10 02/07/19 08:10 02/07/19 08:10 02/07/19 08:10 02/07/19 08:10 Vital Signs Reviewed: Yes Diagnostics - Laboratory Result Diagrams: 02/09/19 06:05 02/09/19 06:05 Lab Statement: Any lab studies that have been ordered have been reviewed, and results considered in the medical decision making process. - Radiology CXR Radiology Interpretation Completed By: Radiologist Summary of Radiographic Findings: Stigmata of potential obstructive lung disease. No acute pulmonary or cardiac process evident. ED physician has reviewed this report. - EKG 0915 Cardiac Rate: Other Rate - afib with rate of 81 BPM EKG Rhythm: Atrial Fibrillation ST Segment: Normal Summary of EKG Findings: A-fib with [address] elevations 0813 Cardiac Rate: Tachycardia - 130 BPM EKG Rhythm: Atrial Fibrillation ST Segment: Normal Summary of EKG Findings: A-Fib with [address] elevations. Re-Evaluation - Re-Evaluation First Eval Re-Evaluation Time: 09:04 Change: Improved Comment: Patient reports no CP or SOB. Second Eval Re-Evaluation Time: 11:08 Change: Improved Comment: Dr. Bustamante discussed with patient who is agreable to being discharged home with a follow up appointment with Dr. Bustamante's office. Chest Pain Course/Dx - Course Assessment/Plan: This patient is a 74-year-old female who presents to the emergency department with a chief complaint of having chest pain burning like pain since this morning. She reports that her Apple Watch shows that she has atrial fibrillation. She also reports that two days ago she had this episode of fibrillation on her Apple Watch but it resolved. Patient has no history of atrial fibrillation and she is not taking any blood thinners. She has past medical history significant for hypertension, asthma, and rheumatoid arthritis. In the ED course the patient was placed on a manager cardiac. EKG was performed and shows that the patient has an atrial fibrillation with RVR which is a new finding for this patient. We obtained an IV access and the patient was given Cardizem 20 mg IV. After the patient was given these medications the blood pressure and the heart rate has improved. Blood work without any significant abnormalities except for creatinine 1.1, glucose 125, and troponin is 0.00. I discussed the case with Dr. Bustamante and he recommends that the patient to be admitted to the hospital services. I discuss my physical exam, findings and test results with Dr. Serrano from the hospitalist services and she agrees to admit patient to her services. Patient is hemodynamically stable alert and oriented x 3. - Chest Pain Differential Diagnosis/HQI/PQRI: Acute [place], ACS, Angina, CHF, Chest Wall, GI Disease, Lower Respiratory Infection - Diagnoses Provider Diagnoses: Atrial fibrillation with RVR - Provider Notifications Discussed Care Of Patient With: Rashel Bustamante Time Discussed With Above Provider: 09:27 Instructed by Provider To: Admit As Inpatient - Dr. Bustamante, vice president risk management, recomended admitting the patient. Dr. Serrano, Hospitalist, admitted the patient at 11:37. - Critical Care Time Critical Care Time: 75-104 min Discharge - Sign-Out/Discharge Documenting (check all that apply): Patient Departure - admit All imaging exams completed and their final reports reviewed: Yes Patient Received Moderate/Deep Sedation with Procedure: No - Discharge Plan Condition: Good Disposition: ADMITTED TO [facility] - Billing Disposition and Condition Condition: GOOD Disposition: Admitted to [facility] - Attestation Statements Document Initiated by Scribe: Yes Documenting Scribe: Lloyd Chan Provider For Whom Shanno is Documenting (Include Credential): Danial Burciaga MD Scribe Attestation: I, Lloyd Chan, scribed for Danial Burciaga MD on 02/09/19 at 1134. Scribe Documentation Reviewed: Yes Provider Attestation: The documentation as recorded by the scribe, Lloyd Chan accurately reflects the service I personally performed and the decisions made by , Danial Burciaga MD Status of Scribe Document: Viewed
[2019-02-07 08:43] LABS: ABS Eosinophils 0.1 10^3/ul (0-0.6); ABS Lymphocytes 1.5 10^3/ul (1.0-4.8); ABS Monocytes 0.7 10^3/ul (0-0.8); ABS Neutrophils 2.9 10^3/ul (1.5-7.7); Eosinophil % 1.5 %; Hematocrit 41 % (35-47); Hemoglobin 13.7 g/dL (12.0-16.0); Lymphocyte % 28.1 %; Mean Corpuscular HGB Conc 33 g/dL (31-36); Mean Corpuscular Hemoglobin 31 pg (27-31); Mean Corpuscular Volume 94 fL (80-97); Mean Platelet Volume 7.5 fL (7.4-10.4); Nucleated Red Blood Cells % 0.1; Platelet Count 304 10^3/uL (150-450); Red Blood Count 4.36 10^6 /uL (3.70-4.87); Red Cell Distribution Width 13 % (10.5-15); White Blood Count 5.3 10^3/uL (3.5-10.8)
[2019-02-07 09:01] LABS: Albumin 4.5 g/dL (3.2-5.2); Albumin/Globulin Ratio 1.6 (1-3); BUN/Creatinine Ratio 11.8 (8-20); Calcium 9.5 mg/dL (8.6-10.3); EGFR African American 58.6 (>60); EGFR Non-African American 48.4 (>60); Globulin 2.9 g/dL (2-4); Potassium 3.9 mmol/L (3.5-5.0); Total Bilirubin 0.5 mg/dL (0.2-1.0); Total Protein 7.4 g/dL (6.4-8.9)
[2019-02-07 09:03] LABS: INR 0.9 (0.82-1.09)
[2019-02-07 09:05] LABS: CKMB ng/mL 1.8 ng/mL (0.6-6.3)
[2019-02-07 09:32] LABS: TSH (Thyroid Stimulating Horm) 2.54 mcIU/mL (0.34-5.60)
[2019-02-07 09:47] LABS: Urine Appearance Clear; Urine Bilirubin Negative (Negative); Urine Blood Negative (Negative); Urine Color Straw; Urine Glucose Negative (Negative); Urine Ketones Negative (Negative); Urine Nitrite Negative (Negative); Urine Protein Negative (Negative); Urine Specific Gravity 1.008 (1.010-1.030); Urine Urobilinogen Negative (Negative)
[2019-02-07] MEDS ORDERED: Diltiazem XR EXTEND Releas(NF) 240 MG CAP PO ONE (10:41)
[2019-02-07] MEDS ORDERED: Diltiazem CD CAP* 120 MG PO ONE (10:41)
[2019-02-07] MEDS ORDERED: Apixaban* 5 MG TAB PO ONE (10:47)
--- NOTE | 2019-02-07 13:32 | HP ---
CC: Dr. Gerard Parker* HISTORY AND PHYSICAL: DATE OF ADMISSION: 02/07/19 PRIMARY CARE PROVIDER: Dr. Gerard Parker. HEALTHCARE PROXY: Her , Ronald. CODE STATUS: Full. CHIEF COMPLAINT: Recurrence of AFib noted on Apple watch. HISTORY OF PRESENT ILLNESS: Ms. Quintero is a 74-year-old woman with rheumatoid arthritis, hypertension, constipation and GERD, who presents to the hospital for recurrence of atrial fibrillation seen on her Apple watch at 7:30 this morning. Two days prior to this presentation, she came to the emergency room with asymptomatic atrial fibrillation. She had never experienced atrial fibrillation before, but she does have an Apple watch and she saw the heart rate increase to 130 to 150 beats per minute for about 20 minutes. She had no symptoms at that time, but she came to the emergency room where she was found to already be in normal sinus rhythm, so she was discharged to follow up with her primary care physician, which she was supposed to be today. However, last night, she reports that she experienced some epigastric burning, which is possibly a chronic problem as the patient does have a history of reflux and is on a PPI nightly. However, this time, the epigastric burning was associated with mild diaphoresis. Today, she was going to go to her primary care physician for a morning appointment; however, because the Apple watch showed a recurrence of atrial fibrillation with heart rate in the 130s, she decided to come to the emergency room instead. When this tachycardia started this morning, the patient reports that she did feel palpitations, but no chest pain. She denied associated shortness of breath, fevers, chills, nausea, vomiting, or dysuria. She denied focal neuro symptoms, weakness, or altered mental status. In the emergency room, the patient was noted to have a blood pressure of 189/ 135. The patient reported that she was very anxious at that time. The patient was given IV diltiazem 20 mg and had a normalization of her blood pressure and heart rate, although still in atrial fibrillation rhythm. Her labs are unremarkable. Dr. Bustamante was consulted on the case in the emergency room and recommended that the patient could go home if she felt comfortable, with close outpatient followup. However, the patient had already canceled her clinic appointment for later today, so she was anxious about discharge from the ER. It was agreed that she would be admitted under observation while initiating oral rate control agents and anticoagulation. PAST MEDICAL HISTORY: 1. Rheumatoid arthritis. 2. GERD. 3. Constipation. 4. Hypertension. PAST SURGICAL HISTORY: Left total knee replacement. HOME MEDICATIONS: 1. Tofacitinib 5 mg twice a day. 2. Rosuvastatin 10 mg nightly. 3. Omeprazole 20 mg twice a day. 4. Losartan 100 mg daily. 5. Linaclotide 290 mcg daily. 6. Folic acid 1 mg twice a day. 7. Albuterol 2 puffs every 4 hours as needed for shortness of breath. ALLERGIES: LEVOFLOXACIN caused tingling in her extremities. FAMILY HISTORY: Her sister has a diagnosis of atrial fibrillation and has had 5 ablations. Her father has had cardiac arrest for which he needed an ICD placed. SOCIAL HISTORY: She lives with her . She is retired from [employer]. She is a never smoker, drinker, or recreational drug user. REVIEW OF SYSTEMS: A complete 10-point review of systems was performed and pertinent positives and negatives are listed in the HPI. PHYSICAL EXAMINATION GENERAL: She is a pleasant, alert woman, who is in no acute distress. VITAL SIGNS: The patient is afebrile, heart rate in the 80s, blood pressure 150 /73, respiratory rate 16, oxygen saturation 95% on room air. HEENT: Pupils are equal, round, and reactive to light bilaterally. LUNGS: Clear to auscultation bilaterally. No increased work of breathing. HEART: Irregularly irregular. No murmurs, gallops, or rubs. ABDOMEN: Soft, nontender, nondistended. EXTREMITIES: Warm and well perfused. No lower extremity edema. DP pulses 2+. NEURO: Alert and oriented x3. Cranial nerves II through XII intact. Strength and sensation grossly intact. DIAGNOSTIC STUDIES/LAB DATA: Labs reviewed and significant for creatinine 1.1 at baseline. TSH 2.5. Troponins negative x2. UA clear. Chest x-ray with stigmata of potential obstructive lung disease. No acute cardiopulmonary process is evident. An EKG before diltiazem showed AFib, rate 130; after diltiazem, AFib, rate [address] segment or T-wave abnormalities. ASSESSMENT AND PLAN: Ms. Quintero is a 74-year-old woman with a history of rheumatoid arthritis, hypertension, gastroesophageal reflux disease, constipation, who is presenting with symptomatic atrial fibrillation. She does not seem to be having an acute coronary syndrome at this time given lack of chest pain, EKG without ischemic change, and negative troponins. She will be admitted while titrating oral rate control agents with initiation of anticoagulation. 1. Atrial fibrillation. Starting on dilt 120 mg daily - increase if needed. Continue telemetry monitoring. We will also start on apixaban 5 mg twice a day. The patient was educated on risks and benefits of anticoagulation as well as signs of bleeding. 2. Hypertension. Continue home losartan 100 mg daily. 3. Gastroesophageal reflux disease. Continue home omeprazole. 4. Rheumatoid arthritis. Continue home Xeljanz twice a day. 5. FEN: Electrolytes normal. We will start a heart-healthy diet. 6. DVT prophylaxis: Now on therapeutic anticoagulation. 7. Full code. TIME SPENT: Approximately 60 minutes was spent on admission of this patient, more than half of which was spent at bedside for interview and exam. [id number]/[facility] #: [id number] GARIMA
[2019-02-07] MEDS: Diltiazem TAB* 30 MG PO SCH ×2 (18:01→23:19)
[2019-02-07] MEDS: Atorvastatin* 20 MG TAB PO SCH (18:01)
[2019-02-07] MEDS: Pantoprazole TAB * 40 MG TAB PO SCH (20:23)
[2019-02-07] MEDS: Folic Acid TAB* 1 MG PO SCH (20:23)
[2019-02-07] MEDS: Apixaban* 5 MG TAB PO SCH (20:23)
[2019-02-07] MEDS: TOFACITINIB CITRATE 5 MG PO SCH (22:43)
[2019-02-08] MEDS ORDERED: Diltiazem CD CAP* 120 MG PO SCH (09:00)
[2019-02-08] MEDS: TOFACITINIB CITRATE 5 MG PO SCH ×3 (09:00→20:10)
[2019-02-08] MEDS ORDERED: LINACLOTIDE 145 MCG PO SCH (09:00)
[2019-02-08] MEDS: Folic Acid TAB* 1 MG PO SCH ×2 (09:09→20:10)
[2019-02-08] MEDS: Losartan TAB* 25 MG PO SCH (09:10)
[2019-02-08] MEDS: Diltiazem CD CAP* 240 MG PO SCH (09:10)
[2019-02-08] MEDS: Apixaban* 5 MG TAB PO SCH ×2 (09:10→20:10)
[2019-02-08] MEDS: Pantoprazole TAB * 40 MG TAB PO SCH ×2 (09:10→20:10)
--- NOTE | 2019-02-08 12:02 | PN ---
Subjective Date of Service: 02/08/19 Interval History: patient reports she feels much better today. She does reports she awakened in the night again with symptoms of epigastric burning more than what she normally experiences with her reflux symptoms with accompanied diaphoresis, and a sense of feeling "terrible". She denies CP/SOB. No recent illnesses. Pt denies sleep apnea Objective Active Medications: Apixaban (Eliquis*) 5 mg PO BID [facility] Last Admin: 02/08/19 09:10 Dose: 5 mg Atorvastatin Calcium (Lipitor*) 20 mg PO QPM [facility]; Protocol Last Admin: 02/07/19 18:01 Dose: 20 mg Diltiazem HCl (Cardizem Cd Cap*) 240 mg PO DAILY [facility] Last Admin: 02/08/19 09:10 Dose: 240 mg Folic Acid (Folvite Tab*) 1 mg PO BID [facility] Last Admin: 02/08/19 09:09 Dose: 1 mg Linaclotide (Linzess (Nf)) 290 mcg PO QAM [facility] Losartan Potassium (Cozaar Tab*) 100 mg PO DAILY [facility] Last Admin: 02/08/19 09:10 Dose: 100 mg Pto: Tofacitinib Citrate [Xeljanz] 5 Mg 5 mg PO BID [facility] Last Admin: 02/08/19 09:09 Dose: 5 mg Pantoprazole Sodium (Protonix Tab*) 40 mg PO BID [facility] Last Admin: 02/08/19 09:10 Dose: 40 mg Vital Signs - 8 hr 02/08/19 02/08/19 08:00 08:05 Temperature 97.2 F Pulse Rate 97 Respiratory 20 20 Rate Blood Pressure 129/88 (mmHg) O2 Sat by Pulse 92 Oximetry Oxygen Devices in Use Now: None Appearance: obese 74 yo female sitting up on the bed in NAD, A+O x3 Eyes: No Scleral Icterus, PERRLA Ears/Nose/Mouth/Throat: Mucous Membranes Moist Respiratory: Symmetrical Chest Expansion and Respiratory Effort, Clear to Auscultation Cardiovascular: NL Sounds; No Murmurs; No JVD, No Edema, - - irregularly irregular Abdominal: NL Sounds; No Tenderness; No Distention Extremities: No Edema, No Clubbing, Cyanosis Skin: No Rash or Ulcers Neurological: Alert and Oriented x 3, NL Sensation, NL Gait, NL Muscle Strength and Tone Lines/Tubes/Other Access: Clean, Dry and Intact Peripheral IV Nutrition: Taking PO's Result Diagrams: 02/07/19 08:30 02/07/19 08:30 Assess/Plan/Problems-Billing Assessment: 74 yo female with a PMH of RA, HTN, constipation, GERD who presented to the ER after her apple watch reported she was in afib. She presented to the ER a few days prior with the same c/o and was found to be in sinus rhythm. She then experienced some epigastric burning, mild diaphoresis, found to be in afib on her watch again. She returned to the ER and was found to be in afib and be hypertensive and was admitted to the hospitalist service - Patient Problems (1) Atrial fibrillation with RVR Comment: - new onset afib - converted in the ER with Cardizem not back in afib, now rate controlled in afib - had another episode in the night of epigastric buring, diaphoresis -plan to keep patient overnight and obtain overnight pulse oximetry - patient is now asymptomatic - Echo pending - Continue Eliquis - Troponins negative - cardiology to consult (2) GERD (gastroesophageal reflux disease) Comment: - continue PPI - possible reflux symptoms at night? (3) Obesity (BMI 30-39.9) Comment: - add on HgA1C (4) RA (rheumatoid arthritis) Comment: - controlled; continue home Xeljanz BID (5) Hypertension Comment: - controlled. continue home dose losartan, continue cardizem (new) (6) DVT prophylaxis Comment: eliquis Status and Disposition: OBV. Most likely home tomorrow.
[2019-02-08] MEDS: PTO: Linaclotide (NF) 290 MCG CAP PO SCH (13:09)
--- NOTE | 2019-02-08 16:32 | ECHO ---
*[facility]* [place] [address] Fax #: [phone] Transthoracic Echocardiogram Patient: Leon, Height: 65 in / Sheryl Mckeon 165.1 cm : 1945 Weight: 235.5 lb / Study Date: 02/08/2019 107 kg Age: 74 BP: 132 / 78 Gender: F BMI/BSA: 39.3 kg/m^2 HR: 93 bpm / 2.12 m^2 *Chip Frier: Liberty Whalen [facility] *Referring Physician: * Kim Rodriguez *Reading Physician: Aleta Bello MD Indications: Atrial Fibrillation. History: Risk factors: Hypertension. Conclusions Summary: 1. Left ventricle: The cavity size is normal. Wall thickness is moderately increased. The estimated ejection fraction is 60-65%. 2. Right ventricle: Systolic function is normal. 3. Aortic valve: The valve is trileaflet. The leaflets are mildly thickened. Left corornary cusp is moderately thickened. There is mild regurgitation. 4. No prior echocardiogram to compare. Study data: Transthoracic echocardiogram. Procedure: Transthoracic echocardiography was performed. Image quality was fair. Complete 2D, spectral Doppler, and color flow Doppler. Location: Bedside. Patient status: Inpatient. Patient room number: 453. Rhythm: Atrial fibrillation. Findings Left ventricle: The cavity size is normal. Wall thickness is moderately increased. The estimated ejection fraction is 60-65%. Wall motion is normal; there are no regional wall motion abnormalities. Left ventricular diastolic function parameters are indeterminate. Right ventricle: The cavity size is normal. Wall thickness is mildly increased. Systolic function is normal. Left atrium: The atrium is at the upper limits of normal in size. Right atrium: Not well visualized. Mitral valve: The annulus is mildly calcified. The leaflets are mildly thickened. There is no evidence of stenosis. There is no significant regurgitation. Aortic valve: The valve is trileaflet. The leaflets are mildly thickened. Left corornary cusp is moderately thickened. There is no evidence of stenosis. There is mild regurgitation. Tricuspid valve: The leaflets are normal thickness. There is no evidence of stenosis. There is no significant regurgitation. Pulmonic valve: Not well visualized. There is no significant regurgitation. Aorta: Aortic arch: The aortic arch is appears normal. The aortic root is not dilated. Pericardium: There is no significant pericardial effusion. Pulmonary arteries: Not well visualized. Systemic veins: Inferior vena cava: The vessel is dilated. The respirophasic diameter changes are in the normal range (>= 50%). Measurements Left ventricle Value Ref Aortic valve continued Value Ref TRISTIAN, LAX 3.9 cm 3.8 - 5.2 Mean grad, S 3.0 mm Hg ---- ESD, LAX (L) 2.0 cm 2.2 - 3.5 Peak grad, S 7.0 mm Hg ---- FS, LAX (H) 50 % 27 - 45 ROB, VTI 3.14 cm^2 ---- PW, ED, LAX (H) 1.3 cm 0.6 - 0.9 ROB, Vmax 3.14 cm^2 ---- EF (H) 82 % 54 - 74 E', med martha, TDI 9.6 cm/sec >=7.0 Mitral valve Value Re f E/e', med martha, 11 Peak E 1.06 m/sec ---- TDI Peak A 0.03 m/sec ---- Decel time 169 ms ---- LVOT Value Ref PHT 62 ms ---- Diam, S 2.00 cm Mean grad, D 2.0 mm Hg ---- Area 3.1 cm^2 Peak grad, D 5.0 mm Hg ---- Peak sonido, S 1.33 m/sec Peak E/A ratio 34.2 ---- Peak grad, S 7 mm Hg MVA, PHT 3.3 cm^2 ---- Mean grad, S 4 mm Hg Pulmonic valve Value Ref Ventricular septum Value Ref Peak v, S 0.83 m/sec ---- IVS, ED (H) 1.4 cm 0.6 - 0.9 Peak grad, S 3.0 mm Hg ---- Right ventricle Value Ref Aortic root Value Ref TRISTIAN, LAX 2.9 cm Root diam 2.8 cm <4.2 Left atrium Value Ref Ascending aorta Value Ref AP dim, ES (H) 4.20 cm 2.70 - AAo AP diam, S 3.4 cm ---- 3.80 ML dim, A4C 4.0 cm Aortic arch Value Ref SI dim, A4C 5.2 cm Arch diam 2.9 cm ---- Vol/bsa, ES, A/L 24 ml/m^2 16 - 34 Decending aorta Value Ref Right atrium Value Ref Kirsty peak sonido 0.64 m/sec ---- Estimated RAP 3 mm Hg Inferior vena cava Value Ref Aortic valve Value Ref Diam 2.4 cm ---- Peak v, S 1.33 m/sec VTI, S 21.7 cm Legend: (L) and (H) rashad values outside specified reference range. Prepared and electronically signed by Aleta De La Torre MD 02/08/2019 16:31
[2019-02-08] MEDS: Atorvastatin* 20 MG TAB PO SCH (17:40)
--- NOTE | 2019-02-09 01:34 | CONS ---
CC: Dr. Gerard Parker; Hospitalist Service CARDIOLOGY CONSULTATION: DATE OF CONSULT: 02/08/19 REASON FOR CONSULTATION: Paroxysmal atrial fibrillation. CHIEF COMPLAINT: Intermittent tachycardia. HISTORY OF PRESENT ILLNESS: Mrs. Quintero is a 74-year-old woman with rheumatoid arthritis and no prior cardiac history. The patient has an Apple watch and had presented to the emergency room twice due to elevated heart ra dominique on her Apple watch. Rates were 130 to 150 beats per minute for up to 20 minutes at a time. Her initial presentation in the emergency room, she was in sinus rhythm; however, yesterday, she presente d to the emergency room instead of her primary care physician because of recurrent high rates on her Apple watch, awareness of palpitation, and she had had some epigastric discomfort and diaphoresis the night before. The patient denies alcohol use, excessive caffeine or [id number] medication. She denies snoring or symptoms of sleep apnea. She wakes up with good energy but then did tell me she takes a nap in t he daytime. PAST MEDICAL HISTORY: The patient has a past medical history of rheumatoid arthritis followed by Dr. Parker, hypertension, constipation, and reflux. PAST SURGICAL HISTORY: Knee replacement in 2017. MEDICATIONS: Outpatient medications include: 1. Tofacitinib 5 mg b.i.d. 2. Crestor 10 mg at night. 3. Omeprazole 20 mg b.i.d. 4. Losartan 100 mg a day. 5. Linaclotide 290 mcg a week. 6. Folic acid 1 mg b.i.d. 7. Albuterol inhaler. Inpatient medications include: 1. Eliquis 5 mg b.i.d. 2. Lipitor 20 mg a day. 3. Cardizem 240 mg a day. 4. Folvite 1 mg b.i.d. 5. Linzess 290 mcg a day. 6. Cozaar 100 mg a day. 7. Xeljanz 5 mg b.i.d. 8. Protonix 40 mg b.i.d. ALLERGIES: LEVOFLOXACIN. FAMILY HISTORY: Significant that she has multiple siblings with atrial fibrillation and a sibling wi th 5 ablations. She has a father who had a history of cardiac arrest and ICD and I believe AFib. 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 She lives with her . Never smoked. No history of recreationa l drug use. No alcohol abuse. REVIEW OF SYSTEMS: A 14-point review of systems was performed, negative for recent fevers, chills, s weats. No recent travel. No coughing. No change in her usual bowel habits. Negative for exertiona l chest discomfort. She admits that after her knee surgery, she has been very inactive getting less activity than before. She denies orthopnea, PND, swelling or weight gain. See history of present il lness for notations of palpitation, epigastric burning, and diaphoresis. The patient did state that Dr. Parker doubled one of her blood pressure medicines relatively recently the last time she had seen him. PHYSICAL EXAM: On exam, the patient is a short, centripetally obese older woman, seated with her jonathan ghter, in no acute distress. She is 5 feet 2 inches, weighs 236 pounds with a BMI of 39, blood press ure 122/70, pulse was 80 to 100, respiratory rate of 16, oxygen saturation on room air 95. HEENT: P upils are equal and round. Mucous membranes are moist. Neck: Without increased JVP. No appreciable thyromegaly. Breath sounds are clear with good effort. No wheezes, rales or rhonchi. Coronary: S 1, S2, irregularly irregular. 2/6 early to mid peaking systolic murmur heard in the right upper ster nal border with radiation to the left sternal border. No rubs. No diastolic murmurs. Abdomen: Act jesús bowel sounds. No appreciable hepatomegaly. The lower extremities are free of edema, warm with pa lpable posterior tibial pulses. DIAGNOSTIC STUDIES/LAB DATA: The patient's transthoracic echo from 02/08/19, shows moderate left naif tricular hypertrophy with an ejection fraction of 60% to 65%, mild right ventricular hypertrophy with normal RV systolic function, aortic valve sclerosis with mild aortic insufficiency. ECGs reviewed from 02/07/18 at 0800. She was in AFib with a ventricular rate of 130 beats a minute, QRS axis 0, normal intraventricular conduction times, nonspecific ST changes. From 02/08/18 at 1159, the patient is in AFib with a ventricular rate of 90 beats a minute. Compared with her EKG of 02/04, the AFib is new and ventricular tachycardia replaces mild sinus bradycardia at 54 beats a minute . Labs: White count 5.3, hematocrit 41, platelets 304. INR 0.9. Sodium 140, potassium 3.9, chloride 106, bicarb 24, BUN 13, creatinine 1.1, glucose 125, hemoglobin A1c 6.4. ALT 36, AST 27. Troponin 0 .00, #2 is 0.01. BNP of 40. Urinalysis unremarkable. Chest x-ray from 02/07/19, showed stigmata of potential obstructive disease, mildly tortuous descendi ng thoracic aorta, stable. ASSESSMENT AND PLAN: On summary, Sheryl Quintero, is a 74-year-old woman with an Apple watch, who has no alissa intermittent tachycardia and found to have paroxysmal atrial fibrillation, initially symptomatic, but now mildly symptomatic. She has some epigastric burning and diaphoresis have occurred and her e chocardiogram shows moderate left ventricular hypertrophy, and mild aortic insufficiency. The atrial fibrillation could be related to the patient's age, hypertension, evidence suboptimally tr eated based on history of recent increase in meds and left ventricular hypertrophy seen on echo. She might have sleep apnea, although history equivocal and the patient is centripetally overweight with a high body mass index, which is independently associated with sleep apnea. For now, I agree with rate control and anticoagulation, the calcium channel and beta blockers could a lso contribute to improved rhythm control that have not, but today the patient had paroxysmal AFib on these medications in the hospital. Before deciding on an antiarrhythmic with her atherosclerotic risk of dyslipidemia, hypertension, fat her's history, overweight and inactivity, I am electing to get a stress test first and then decide on antiarrhythmic management. Options would include sotalol, however, she was mildly bradycardic without rate lowering agents. Tik osyn and amiodarone would be other options, but I would hate to start amiodarone unless they are abso lutely necessary. I would not initiate procainamide without first evaluating her with the stress dominique t. For potential atherosclerotic risk, I would aggressively manage her blood pressure, lipids, get LDL c holesterol between 100 and 130, and try to encourage the patient to optimize diet, weight, and exerci se pattern. Further recommendations will be made, pending the results of her stress test and her clinical course on her current medical regimen. I would continue her on anticoagulation indefinitely as she has asymptomatic or nearly asymptomatic A Fib even with the Apple watch. [id number]/[facility] #: [id number]
[2019-02-09 06:28] LABS: ABS Eosinophils 0.1 10^3/ul (0-0.6); ABS Lymphocytes 1.4 10^3/ul (1.0-4.8); ABS Monocytes 0.8 10^3/ul (0-0.8); ABS Neutrophils 3.1 10^3/ul (1.5-7.7); Eosinophil % 1.3 %; Hematocrit 41 % (35-47); Hemoglobin 13.9 g/dL (12.0-16.0); Lymphocyte % 26.8 %; Mean Corpuscular HGB Conc 34 g/dL (31-36); Mean Corpuscular Hemoglobin 32 pg (27-31); Mean Corpuscular Volume 94 fL (80-97); Mean Platelet Volume 7.6 fL (7.4-10.4); Nucleated Red Blood Cells % 0.1; Platelet Count 307 10^3/uL (150-450); Red Blood Count 4.39 10^6 /uL (3.70-4.87); Red Cell Distribution Width 13 % (10.5-15); White Blood Count 5.4 10^3/uL (3.5-10.8)
[2019-02-09 06:46] LABS: BUN/Creatinine Ratio 12.6 (8-20); Calcium 9.6 mg/dL (8.6-10.3); EGFR African American 63.2 (>60); EGFR Non-African American 52.2 (>60); Potassium 4.2 mmol/L (3.5-5.0)
[2019-02-09] MEDS: Losartan TAB* 25 MG PO SCH (10:55)
[2019-02-09] MEDS: PTO: Linaclotide (NF) 290 MCG CAP PO SCH (10:56)
[2019-02-09] MEDS: Apixaban* 5 MG TAB PO SCH ×2 (10:56→21:08)
[2019-02-09] MEDS: Folic Acid TAB* 1 MG PO SCH ×2 (10:56→21:08)
[2019-02-09] MEDS: Diltiazem CD CAP* 240 MG PO SCH (10:56)
[2019-02-09] MEDS: Pantoprazole TAB * 40 MG TAB PO SCH ×2 (10:56→21:09)
[2019-02-09] MEDS: TOFACITINIB CITRATE 5 MG PO SCH ×2 (10:56→21:09)
[2019-02-09] MEDS: Atorvastatin* 20 MG TAB PO SCH (18:13)
--- NOTE | 2019-02-09 18:15 | PN ---
Subjective Date of Service: 02/09/19 Interval History: Patient is feeling well today. Patient has been having WEBBER but denies palpitations. Patient denies CP, SOB, N/V, abdominal pain, dysuria, or other pain. Patient had no symptoms except for slight SOB during stress test. Family History: Unchanged from Admission Social History: Unchanged from Admission Past Medical History: Unchanged from Admission Objective Active Medications: Apixaban (Eliquis*) 5 mg PO BID [facility] Last Admin: 02/09/19 10:56 Dose: 5 mg Atorvastatin Calcium (Lipitor*) 20 mg PO QPM [facility]; Protocol Last Admin: 02/08/19 17:40 Dose: 20 mg Diltiazem HCl (Cardizem Cd Cap*) 180 mg PO DAILY [facility] Dronedarone (Multaq Tab*) 400 mg PO BID [facility] Folic Acid (Folvite Tab*) 1 mg PO BID [facility] Last Admin: 02/09/19 10:56 Dose: 1 mg Linaclotide (Linzess (Nf)) 290 mcg PO QAM [facility] Last Admin: 02/09/19 10:56 Dose: 290 mcg Losartan Potassium (Cozaar Tab*) 100 mg PO DAILY [facility] Last Admin: 02/09/19 10:55 Dose: 100 mg Pto: Tofacitinib Citrate [Xeljanz] 5 Mg 5 mg PO BID [facility] Last Admin: 02/09/19 10:56 Dose: 5 mg Pantoprazole Sodium (Protonix Tab*) 40 mg PO BID [facility] Last Admin: 02/09/19 10:56 Dose: 40 mg Vital Signs - 8 hr 02/09/19 02/09/19 11:40 15:08 Temperature 97.6 F Pulse Rate 96 Respiratory 21 Rate Blood Pressure 112/67 98/70 (mmHg) O2 Sat by Pulse 98 Oximetry Oxygen Devices in Use Now: None Appearance: Patient is a 74yo female who appears stated age and is sitting in the chair in [facility]. Eyes: No Scleral Icterus, PERRLA Ears/Nose/Mouth/Throat: NL Teeth, Lips, Gums, Clear Oropharnyx, Mucous Membranes Moist Neck: NL Appearance and Movements; NL JVP, Trachea Midline Respiratory: Symmetrical Chest Expansion and Respiratory Effort, Clear to Auscultation Cardiovascular: NL Sounds; No Murmurs; No JVD, No Edema, - - Irregularly Irregular rhythm, slightly tachycardic. Abdominal: NL Sounds; No Tenderness; No Distention, No Hepatosplenomegaly Lymphatic: No Cervical Adenopathy Extremities: No Edema, No Clubbing, Cyanosis Skin: No Rash or Ulcers, No Nodules or Sclerosis Neurological: Alert and Oriented x 3, NL Sensation, NL Muscle Strength and Tone , - - CN II-XII intact. Result Diagrams: 02/09/19 06:05 02/09/19 06:05 Assess/Plan/Problems-Billing Assessment: 74 yo female with a PMH of RA, HTN, constipation, GERD who presented to the ER after her apple watch reported she was in afib. She presented to the ER a few days prior with the same c/o and was found to be in sinus rhythm. She then experienced some epigastric burning, mild diaphoresis, found to be in afib on her watch again. She returned to the ER and was found to be in afib and be hypertensive and was admitted to the hospitalist service - Patient Problems (1) Atrial fibrillation with RVR Current Visit: Yes Status: Acute Code(s): I48.91 - UNSPECIFIED ATRIAL FIBRILLATION SNOMED Code(s): 584301475202315 Comment: - New onset afib - converted in the ER with Cardizem now back in afib, - Now rate controlled in afib - Echo shows normal EF, LVH - Continue Eliquis - Troponins negative - Cardiology consult appreciated, stress test low risk - Overnight pulse oximetry markedly abnormal with prolonged periods of desaturation, likely contributing to afib, repeat tonight with oxygen. - Patient prefers rate control, start Multaq. (2) Hypertension Current Visit: Yes Status: Acute Code(s): I10 - ESSENTIAL (PRIMARY) HYPERTENSION SNOMED Code(s): 78356901 Comment: - Controlled. continue home dose losartan - One episode of hypotension, decrease cardizem. (3) RA (rheumatoid arthritis) Current Visit: Yes Status: Acute Code(s): M06.9 - RHEUMATOID ARTHRITIS, UNSPECIFIED SNOMED Code(s): 11804253 Comment: - Controlled; continue home Xeljanz BID (4) Full code status Current Visit: Yes Status: Acute Code(s): Z78.9 - OTHER SPECIFIED HEALTH STATUS SNOMED Code(s): 773498929 (5) DVT prophylaxis Current Visit: Yes Status: Acute Code(s): Z29.9 - ENCOUNTER FOR PROPHYLACTIC MEASURES, UNSPECIFIED SNOMED Code(s): 609650013 Comment: - Eliquis Status and Disposition: Inpatient, Home tomorrow in AM after Repeat EKG assuming patient tolerates Multaq.
[2019-02-09] MEDS: Dronedarone TAB* 400 MG PO SCH (21:09)
--- NOTE | 2019-02-10 03:32 | PN ---
Progress Note - Progress Note Date of Service: 02/10/19 Note: Paged for frequent 2 second pauses during the night
[2019-02-10 06:09] LABS: ABS Eosinophils 0.1 10^3/ul (0-0.6); ABS Lymphocytes 1.6 10^3/ul (1.0-4.8); ABS Monocytes 0.7 10^3/ul (0-0.8); ABS Neutrophils 3.2 10^3/ul (1.5-7.7); Eosinophil % 1.1 %; Hematocrit 39 % (35-47); Hemoglobin 13.1 g/dL (12.0-16.0); Mean Corpuscular HGB Conc 33 g/dL (31-36); Mean Corpuscular Hemoglobin 31 pg (27-31); Mean Corpuscular Volume 94 fL (80-97); Mean Platelet Volume 7.4 fL (7.4-10.4); Nucleated Red Blood Cells % 0.1; Platelet Count 305 10^3/uL (150-450); Red Blood Count 4.19 10^6 /uL (3.70-4.87); Red Cell Distribution Width 13 % (10.5-15); White Blood Count 5.6 10^3/uL (3.5-10.8)
[2019-02-10 06:29] LABS: BUN/Creatinine Ratio 14.2 (8-20); Calcium 9.5 mg/dL (8.6-10.3); EGFR African American 56.8 (>60); EGFR Non-African American 46.9 (>60); Potassium 4.1 mmol/L (3.5-5.0)
[2019-02-10 07:55] VITALS: BP 118/74
[2019-02-10] MEDS: PTO: Linaclotide (NF) 290 MCG CAP PO SCH (08:21)
[2019-02-10] MEDS: Apixaban* 5 MG TAB PO SCH (08:21)
[2019-02-10] MEDS: Pantoprazole TAB * 40 MG TAB PO SCH (08:21)
[2019-02-10] MEDS: Dronedarone TAB* 400 MG PO SCH (08:22)
[2019-02-10] MEDS: TOFACITINIB CITRATE 5 MG PO SCH (08:22)
[2019-02-10] MEDS: Losartan TAB* 25 MG PO SCH (08:22)
[2019-02-10] MEDS: Folic Acid TAB* 1 MG PO SCH (08:22)
[2019-02-10] MEDS ORDERED: Diltiazem CD CAP* 180 MG PO SCH (09:00)
[2019-02-10] MEDS ORDERED: Diltiazem CD CAP* 180 MG PO ONE (14:31)
--- NOTE | 2019-02-11 00:37 | DS ---
CC: Dr. Gerard Parker; Dr. Rodger Sylvester* DISCHARGE SUMMARY: DATE OF ADMISSION: 02/07/19 DATE OF DISCHARGE: 02/10/19 PRIMARY CARE PROVIDER: Dr. Gerard Parker. MY ATTENDING WHILE IN THE HOSPITAL: Dr. Rodger Sylvester* (dictated by AMANDO Griffith). PRIMARY DISCHARGE DIAGNOSIS: Atrial fibrillation. SECONDARY DISCHARGE DIAGNOSES: 1. Rheumatoid arthritis. 2. Gastroesophageal reflux disease. 3. Hypertension. STUDIES DONE WHILE IN THE HOSPITAL: EKG from 02/07/19, read as atrial fibrillation, rate of 130, QTc of 472, normal axis. No ST-segment elevation or depression. Poor quality study. Repeat EKG from 02/07/19 shows persistent atrial fibrillation, rate 81, QTc of 450. EKG from 02/08/19 shows atrial fibrillation, no significant changes from previous exam, rate of 91, QTc of 418. Repeat EKG from 02/10/19, shows atrial fibrillation, rate of 84, QTc of 453, no significant changes. Chest x-ray from 02/07/19 read as potential obstructive lung disease, no acute pulmonary or cardiac process evident. Transthoracic echocardiogram from 02/08/19 shows left ventricular chamber size is normal, wall thickness mildly increased, estimated ejection fraction 65%, right ventricular systolic function is normal. Aortic valve shows mild aortic sclerosis with mild regurgitation. No significant findings. Nuclear medicine scan, 02/09/19, read as low risk with stress EF of 64%. Normal ejection fraction. No risk for perfusion defects. Overnight pulse oximetry from shows 44% of the patient's time spent less with oxygen saturation less than 90. Repeat pulse oximetry with 2 L shows 1 minute 40 seconds of time spent with pulse oximetry less than 90. MEDICATIONS AT DISCHARGE: 1. Crestor 10 mg p.o. daily. 2. Omeprazole 20 mg p.o. b.i.d. 3. Xeljanz 5 mg b.i.d. 4. Folic acid 1 mg p.o. b.i.d. 5. Linzess 290 mcg p.o. daily. 6. Albuterol sulfate 2 puffs inhalation q.4 hours as needed. 7. Losartan 100 mg p.o. daily. 8. Eliquis 5 mg p.o. b.i.d. 9. Diltiazem 180 mg p.o. daily. 10. Dronedarone 400 mg p.o. b.i.d. New medications at discharge: 1. Eliquis. 2. Diltiazem. 3. Dronedarone. Medications discontinued at discharge: None. HOSPITAL COURSE: This is a brief summary of the patient's presentation. For more details, please see the history and physical from Dr. Geri Serrano on . In brief, the patient is a 74-year-old female with a past medical history significant for above, who returned to the emergency department with noted tachycardia and irregular heart rhythm on her Apple watch. The patient presented 2 days prior to her admission to the hospital (emergency department) due to again noting tachycardia for approximately 20 minutes on her Apple watch. The patient was asymptomatic both times. In the emergency department, she was found to have return to normal sinus rhythm, was not anticoagulated at this time. At that time, the patient had a followup appointment with her primary care provider, but was unable to make it due to her returning to the emergency department due to concern for recurrent atrial fibrillation. The patient in the emergency department was started on Eliquis, diltiazem, and was admitted to the hospital. The patient was seen in consultation by Dr. Aleta De La Torre and thorough discussion with the patient, it was opted for the patient to have a primary rhythm control method of treating atrial fibrillation. The patient had normal electrolytes, which were unremarkable while in the hospital. The patient has borderline chronic kidney disease mostly in line with her baseline. The patient had negative troponins. The patient had overnight pulse oximetry as above, which was due to concern that sleep apnea may be contributing to her atrial fibrillation with almost complete resolution of the patient's hypoxia with 2 L of oxygen. The patient had a stress test prior to initiation of antiarrhythmic therapy, which shows low risk. The patient was started on dronedarone, observed overnight. The patient tolerated the medication well. The patient stayed in atrial fibrillation with controlled rate and remained asymptomatic. QTC is not probably prolonged. The patient was stable enough for discharge on 02/10/19. PHYSICAL EXAMINATION ON THE DAY OF DISCHARGE: General: The patient is a 74- year- old female who appears stated age and sitting comfortably in the bed, in no acute distress. Vital Signs: At the time of discharge, temperature 98.1, pulse rate 76, respiratory rate 16, oxygen saturation 98% on room air, blood pressure 118/74. HEENT: Head: Normocephalic, atraumatic. Sclerae anicteric. No conjunctival injection. Nasal mucosa is moist. Oral mucosa is moist. No pharyngeal erythema, discharge or exudate. Neck: Supple, nontender. No lymphadenopathy. No carotid bruits auscultated. No JVD. Cardiac: Irregular rate and rhythm. No clicks, murmurs, gallops or rubs. Pulses 2+ in the dorsalis pedis, posterior tibialis, and radial areas in bilateral extremities are noted. Respiratory: Clear to auscultation bilaterally. No wheezes, rales or rhonchi. Good air exchange bilaterally. Abdomen: Soft, nontender, nondistended. Bowel sounds present, normoactive in all 4 quadrants. No hepatosplenomegaly. No abdominal bruits auscultated. No hepatojugular reflux. Genitourinary: No suprapubic or CVA tenderness. Neuro: Cranial nerves II through XII intact. No focal deficits, oriented x3. Psychiatric: Pleasant and cooperative. DISCHARGE PLAN: The patient will be discharged to home. The patient will start on diltiazem for rate control and is currently rate controlled. The patient has been anticoagulated with Eliquis. The patient's CHADS-VASc score is 3, so anticoagulation is recommended. 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 The patient should follow up with her primary care provider in 1 week for general medical management. The patient should return to the hospital for passing out, chest pain, severe shortness of breath, uncontrolled palpitations or alarming symptoms. DIET: The patient should have a heart-healthy diet, caffeine okay. ACTIVITIES: The patient should engage in activity as tolerated. The patient should continue her other medications for chronic medical therapy. TIME SPENT: Approximately 60 minutes was spent on this discharge of the patient , 30 of which were spent [id number] with the patient obtaining history and physical and discussing treatment plan. AMANDO GRIFFITH [id number]/[facility] #: [id number] MTDD
== END 2019-02-10 10:46 | disposition home or self-care (01) | DRG 309 ==
LOC: ED 08:07 → MEDTELE 11:37 → ED 12:22 → OBSVTOIN 02-09 12:00
PROVIDERS: ADMIT Internal Medicine; ATTEND Internal Medicine
PROC: 4A12XM4 Monitoring of Cardiac Stress, External Approach (ICD-10-PCS; principal; 2019-02-09)
DX: I48.0 Paroxysmal atrial fibrillation (principal); R64 Cachexia; M06.9 Rheumatoid arthritis, unspecified; K21.9 Gastro-esophageal reflux disease without esophagitis; I10 Essential (primary) hypertension; I08.0 Rheumatic disorders of both mitral and aortic valves; Z96.652 Presence of left artificial knee joint; E78.00 Pure hypercholesterolemia, unspecified; H26.9 Unspecified cataract; J45.909 Unspecified asthma, uncomplicated; E66.9 Obesity, unspecified; Z88.1 Allergy status to other antibiotic agents; Z79.01 Long term (current) use of anticoagulants; Z98.51 Tubal ligation status; Z82.49 Family history of ischemic heart disease and other diseases of the circulatory system; I49.5 Sick sinus syndrome; Z68.39 Body mass index [BMI] 39.0-39.9, adult
CPT/HCPCS: 36415; 71045; 78452; 80048; 80053; 81003; 82550; 82553; 83036; 83605; 83735; 83880; 84443; 84484; 85025; 85610; 85730; 93005; 93306; 94762; 99285; A9270-GY; A9502

== ENCOUNTER 2020-09-03 06:14 | Observation (INO) ==
[~2020-09-03 06:14] MED LIST: Buffered Lidocaine 1% SYRIN 1 ml INTRADERM ONE; Lactated Ringers 1000 ml BAG 1,000 ML IV SCH
[2020-09-03] MEDS ORDERED: Dexamethasone IV 4 MG/ML VIAL 1 ml VIAL ONE (06:39)
[2020-09-03] MEDS ORDERED: Dexmedetomidine 200 mcg/2 ml 2 ml VIAL (200 mcg) ONE (06:39)
[2020-09-03] MEDS ORDERED: Midazolam 2 mg/2 ml VIAL 1 mg/ml 2 ml VIAL (2 mg) ONE ×2 (06:39→07:22)
[2020-09-03] MEDS ORDERED: ROPIVACAINE 5 MG/ML 30 ML BTL (0.5%) ONE ×3 (06:39→09:23)
[2020-09-03] MEDS ORDERED: ceFAZolin 2 GM PREMIX 2 GM/50 ML BAG ONE (06:44)
[2020-09-03] MEDS ORDERED: Buffered Lidocaine 1% SYRIN 1 ml INTRADERM ONE (06:45)
[2020-09-03] MEDS ORDERED: Propofol 10 MG/ML 20 ML BTL ONE (06:58)
[2020-09-03] MEDS ORDERED: Phenylephrine IV 10 MG/ML 1 ml VIAL ONE (07:06)
[2020-09-03] MEDS ORDERED: Ketamine HCL 50 mg/ml 10 ml VIAL (500 MG) ONE (07:08)
[2020-09-03] MEDS ORDERED: Lidocaine 2% PF 5 ML VIAL ONE ×2 (07:09→08:50)
[2020-09-03] MEDS ORDERED: fentaNYL 100 mcg/2 ml 50 MCG/ML VIAL ONE (08:15)
[2020-09-03] MEDS ORDERED: Ondansetron 4 mg VIAL 2 MG/ML 2 ml VIAL ONE (08:54)
[2020-09-03] MEDS ORDERED: Acetaminophen IV 1 GM/100ML 100 ML ONE (10:34)
[2020-09-03] MEDS ORDERED: Morphine 2 MG/ML SYRINGE IV PRN (10:58)
[2020-09-03] MEDS ORDERED: diPHENhydraMINE 25 mg TAB PO PRN (10:58)
[2020-09-03] MEDS ORDERED: diPHENhydraMINE IV 50 MG/ML 1 ml VIAL (BENADRYL) IV PRN (10:58)
[2020-09-03] MEDS ORDERED: Magnesium Hydroxide LIQ 30 ML UDC PO PRN (10:58)
[2020-09-03] MEDS ORDERED: Lactulose 30 ml UDC PO PRN (10:58)
[2020-09-03] MEDS: oxyCODONE/Acetamin 5/325 mg TAB PO PRN (13:20)
[2020-09-03] MEDS: Ondansetron 4 mg VIAL 2 MG/ML 2 ml VIAL IV PRN ×2 (14:46→21:13)
[2020-09-03] MEDS ORDERED: Scopolamine PATCH Remove NOTE PATCH OFF SCH (15:00)
[2020-09-03] MEDS ORDERED: Prochlorperazine 5 mg/ml 2 ml VIAL (10 mg) IV PRN (16:23)
[2020-09-03] MEDS ORDERED: Prochlorperazine 5 mg/ml 2 ml VIAL (10 mg) IV ONE (16:30)
[2020-09-03] MEDS: ceFAZolin 1 GM ADVAN 1 GM in NS 0.9% 50 ML 50 ML IVPB SCH (17:07)
[2020-09-03] MEDS ORDERED: XELJANZ 5 MG PO SCH (21:00)
[2020-09-03] MEDS: Magnesium Hydroxide LIQ 30 ML UDC PO SCH (21:04)
[2020-09-03] MEDS: CLINDAMYCIN 1% TOPICAL SCH (21:06)
[2020-09-03] MEDS: Lactated Ringers 1000 ml BAG 1,000 ML IV SCH (21:17)
[2020-09-04] MEDS: ceFAZolin 1 GM ADVAN 1 GM in NS 0.9% 50 ML 50 ML IVPB SCH ×2 (01:12→09:48)
[2020-09-04] MEDS: oxyCODONE/Acetamin 5/325 mg TAB PO PRN ×2 (04:39→09:53)
[2020-09-04] MEDS: Lactated Ringers 1000 ml BAG 1,000 ML IV SCH (07:52)
[2020-09-04 08:28] LABS: Hematocrit 33 % (35-47); Hemoglobin 11.1 g/dL (12.0-16.0); Mean Platelet Volume 7.8 fL (7.4-10.4); Platelet Count 294 10^3/uL (150-450)
[2020-09-04 08:51] LABS: BUN/Creatinine Ratio 14.9 (8-20); Calcium 9.1 mg/dL (8.6-10.3); EGFR African American 92.3 (>60); EGFR Non-African American 76.3 (>60); Potassium 4.1 mmol/L (3.5-5.0)
[2020-09-04] MEDS: Vitamin THERAPEUTIC TAB PO SCH (09:48)
[2020-09-04] MEDS: Magnesium Hydroxide LIQ 30 ML UDC PO SCH ×2 (09:48→21:36)
[2020-09-04] MEDS: CLINDAMYCIN 1% TOPICAL SCH ×2 (09:48→21:12)
[2020-09-04] MEDS: Ondansetron ODT 4 mg TAB 4 MG TAB PO PRN ×2 (09:53→15:09)
[2020-09-04] MEDS: LINACLOTIDE 145 MG PO SCH (10:40)
[2020-09-04] MEDS ORDERED: Miconazole VAGINAL CREAM 2% 45 GM VAGINAL SCH (14:00)
[2020-09-04] MEDS: Ondansetron 4 mg VIAL 2 MG/ML 2 ml VIAL IV PRN (20:04)
[2020-09-04] MEDS ORDERED: Al Hydrox/Mg Hydrox/Simet LIQ 30 ML UDC PO ONE (20:27)
[2020-09-04] MEDS ORDERED: HYDROcodone/ACETAMIN 5/325 mg TAB PO PRN (20:37)
[2020-09-05] MEDS: Ondansetron ODT 4 mg TAB 4 MG TAB PO PRN (01:23)
[2020-09-05 04:48] LABS: Hematocrit 32 % (35-47); Hemoglobin 10.6 g/dL (12.0-16.0); Mean Platelet Volume 7.5 fL (7.4-10.4); Platelet Count 294 10^3/uL (150-450)
[2020-09-05] MEDS: LINACLOTIDE 145 MG PO SCH (09:43)
[2020-09-05] MEDS: Magnesium Hydroxide LIQ 30 ML UDC PO SCH (09:44)
[2020-09-05] MEDS: CLINDAMYCIN 1% TOPICAL SCH (09:44)
[2020-09-05] MEDS: Vitamin THERAPEUTIC TAB PO SCH (09:44)
[2020-09-05 11:44] VITALS: BP 118/63
[2020-09-06] MEDS ORDERED: Scopolamine PATCH Remove NOTE PATCH OFF SCH (15:00)
== END 2020-09-05 12:30 | disposition home or self-care (01) ==
LOC: OR 06:14 → SSU 06:14
PROVIDERS: ADMIT Orthopaedic Surgery Adult Reconstructive Orthopaedic Surgery; ATTEND Orthopaedic Surgery Adult Reconstructive Orthopaedic Surgery

== ENCOUNTER 2024-08-21 07:47 | Observation (INO) ==
[~2024-08-21 07:47] MED LIST changes: -Buffered Lidocaine 1% SYRIN 1 ml INTRADERM ONE; +Chlorhexidine MOUTHWASH 0.12% 15 ML UDC ONE; -Lactated Ringers 1000 ml BAG 1,000 ML IV SCH; +Metoclopramide 5 MG/ML VIAL (10 mg) IV PRN; +NS 0.45% 1000 ml BAG 1,000 ML IV SCH; +Naloxone 0.4 mg VIAL 0.4 mg/ml 1 ml VIAL IV PRN
[2024-08-21] MEDS: Scopolamine 1 mg/72hr PATCH TRANSDERM ONE (08:03)
[2024-08-21] MEDS: Buffered Lidocaine 1% SYRIN 1 ml INTRADERM ONE (08:03)
[2024-08-21] MEDS ORDERED: Famotidine IV 10 MG/ML 2 ml VIAL (20 mg) ONE (08:06)
[2024-08-21] MEDS ORDERED: ceFAZolin 2 GM PREMIX 2 GM/50 ML BAG ONE (08:06)
[2024-08-21 08:25] LABS: Rapid COVID-19 Molecular Undetected (Undetected)
[2024-08-21] MEDS ORDERED: Lidocaine 2% PF 5 ML VIAL ONE (08:35)
[2024-08-21] MEDS: Lactated Ringers 1000 ml BAG 1,000 ML IV SCH (08:35)
[2024-08-21] MEDS ORDERED: Propofol 10 MG/ML 20 ML BTL ONE (08:35)
[2024-08-21] MEDS ORDERED: Ondansetron 4 mg VIAL 2 MG/ML 2 ml VIAL ONE (08:35)
[2024-08-21] MEDS: Famotidine IV 10 MG/ML 2 ml VIAL (20 mg) IV SLOW PU ONE (08:35)
[2024-08-21] MEDS ORDERED: Glycopyrrolate IV 0.2 MG/ML 1 ML VIAL ONE (08:35)
[2024-08-21] MEDS ORDERED: Dexamethasone IV 4 MG/ML VIAL 1 ml VIAL ONE (08:35)
[2024-08-21] MEDS ORDERED: Rocuronium 50 mg VIAL 10 mg/ml 5 ml VIAL (50 mg) ONE (08:41)
[2024-08-21] MEDS ORDERED: Phenylephrine 40 mcg/mL 10mL (400mcg) SYRINGE ONE (08:45)
[2024-08-21] MEDS ORDERED: ceFAZolin VIAL VIAL ONE (09:12)
[2024-08-21] MEDS ORDERED: Lidocaine 1% w EPI 1:100,000 MDV 20 ML VIAL ONE (09:12)
[2024-08-21] MEDS ORDERED: fentaNYL 100 mcg/2 ml 50 MCG/ML VIAL ONE ×2 (09:13→12:10)
[2024-08-21] MEDS ORDERED: Phenylephrine IV 10 MG/ML 1 ml VIAL ONE (09:14)
[2024-08-21] MEDS ORDERED: Clindamycin 900 MG/50 **NS BAG 900 MG/50 ML BAG ONE (09:50)
[2024-08-21] MEDS ORDERED: Scopolamine 1 mg/72hr PATCH ONE (09:50)
[2024-08-21] MEDS ORDERED: Morphine 2 MG/ML SYRINGE IV PRN (11:45)
[2024-08-21] MEDS ORDERED: Phenol 1.4% Throat Spray BTL MT PRN (11:45)
[2024-08-21] MEDS ORDERED: Senna TAB 8.6 mg TAB PO PRN (11:45)
[2024-08-21] MEDS ORDERED: Calcium Carb (TUMS) 500 mg CHEW TAB PO PRN (11:45)
[2024-08-21] MEDS ORDERED: Dextran 70/Hypromellose Tears Eye Drops 15 ml BTL (for Artificials Tears) BOTH EYES PRN (11:45)
[2024-08-21] MEDS ORDERED: Benzocaine/Menthol LOZ MT PRN (11:45)
[2024-08-21] MEDS: fentaNYL 100 mcg/2 ml 50 MCG/ML VIAL IV PRN (12:12)
[2024-08-21] MEDS: Metoclopramide 5 MG/ML VIAL (10 mg) IV PRN (14:50)
[2024-08-21] MEDS: Acetaminophen IV 1 GM/100ML 1,000 MG/100 ML BAG IV ONE (16:35)
[2024-08-21 17:38] LABS: ABS Lymphocytes 0.3 10^3/uL (1.0-4.8); ABS Monocytes 0.2 10^3/uL (0.0-0.9); ABS Neutrophils 8.7 10^3/uL (1.5-7.6); Hematocrit 36.5 % (35-45); Hemoglobin 12.3 g/dL (11.5-14.3); Lymphocyte % 3.2 %; Mean Corpuscular Hemoglobin 31.9 pg (27-33); Mean Corpuscular Hgb Conc 33.7 g/dL (31-36); Mean Corpuscular Volume 94.4 fL (80-97); Mean Platelet Volume 7.7 fL (7.5-11.2); Platelet Count 319 10^3/uL (150-450); Red Blood Count 3.86 10^6/uL (3.63-4.92); Red Cell Distribution Width 15.5 % (12-17); White Blood Count 9.2 10^3/uL (3.8-11.8)
[2024-08-21] MEDS: Scopolamine 1 mg/72hr PATCH TRANSDERM SCH (17:50)
[2024-08-21 18:12] LABS: Albumin 3.9 g/dL (3.2-5.2); Albumin/Globulin Ratio 1.7 (1-3); Calcium 9.2 mg/dL (8.6-10.3); Creatinine, Serum 0.88 mg/dL (0.51-0.95); Globulin 2.3 g/dL (2-4); Potassium 4.7 mmol/L (3.5-5.0); Total Bilirubin 0.3 mg/dL (0.2-1.0); Total Protein 6.2 g/dL (6.4-8.9); eGFR CKD-EPI 66.4 (>60)
[2024-08-21 19:05] LABS: High Sensitivity Troponin 1 Hr 4 pg/mL (<15)
[2024-08-21] MEDS: Magic MW-DIPH/MAG-AL-SIME/LIDO FIRST BLM KIT SWISH SWAL PRN (20:10)
[2024-08-21] MEDS: Insulin GLARGINE 100 un/ml 10 ml VIAL SUBCUT SCH (20:52)
[2024-08-22] MEDS ORDERED: [UNRECOGNIZED DRUG - OTHER] PO PRN (08:59)
[2024-08-22] MEDS: LINACLOTIDE 145 MCG PO SCH (09:48)
[2024-08-22] MEDS: Vibegron 75 MG TAB (NF) PO SCH (09:48)
[2024-08-23 10:21] VITALS: BP 124/77
== END 2024-08-23 12:10 | disposition home or self-care (01) ==
LOC: OR 07:47 → SSU 07:47
PROVIDERS: ADMIT Neurological Surgery; ATTEND Neurological Surgery